=== PATIENT | female | born 1970 | race Caucasian/White ===

== ENCOUNTER 2018-03-30 13:05 | Emergency (ER) | payer MEDICAID ==
[2018-03-30] MEDS ORDERED: IBUPROFEN 800 MG TABLET PO STA (13:37)
--- NOTE | 2018-03-30 13:40 | ED Physician Documentation ---
PD HPI LOWER EXT INJURY - Stated complaint Stated Complaint: LT KNEE PX - Chief complaint Chief Complaint: Ext Problem - History obtained from History obtained from: Patient - History of Present Illness PD HPI LOW EXT INJURY LOCATION: Left, Knee Type of injury: Fall Where injury occurred: Home Timing - onset: How many months ago ("a few") Timing - duration: Months ("a few months") Timing - details: Gradual onset Pain level max: 8 Pain level now: 8 Improved by: Rest Worsened by: Moving, Palpating Associated symptoms: Swelling (medial aspect). No: Weakness, Numbness, Tingling Similar symptoms before: Other (R knee has had meniscus surgery x3) Recently seen: Not recently seen - Additional information Additional information: states worsening L knee pain. Has not taken anything for pain. Review of Systems Constitutional: denies: Fever, Chills Ears: denies: Ear pain Nose: denies: Rhinorrhea / runny nose, Congestion GI: denies: Vomiting, Diarrhea Skin: denies: Rash Musculoskeletal: denies: Neck pain, Back pain Neurologic: denies: Headache PD PAST MEDICAL HISTORY - Past Medical History Past Medical History: No Derm: Herpes zoster - Past Surgical History Past Surgical History: Yes Ortho: Other - Present Medications Home Medications: Ambulatory Orders Medication Instructions Recorded Confirmed Acyclovir 200 mg PO 03/30/18 03/30/18 Hydrocodone/Acetaminophen 1 - 2 each PO Q6H PRN #10 tablet 03/30/18 [Hydrocodon-Acetaminophen 5-325] Ibuprofen [Motrin] 800 mg PO Q8H PRN #30 tablet 03/30/18 - Allergies Allergies/Adverse Reactions: Allergies Allergy/AdvReac Type Severity Reaction Status Date / Time Penicillins Allergy Unknown Verified 03/30/18 13:12 Sulfa (Sulfonamide Allergy Rash Verified 03/30/18 13:12 Antibiotics) - Social History Does the pt smoke?: No Smoking Status: Never smoker Does the pt drink ETOH?: No Does the pt have substance abuse?: No - Immunizations Immunizations are current?: Yes PD ED PE NORMAL - Vitals Vital signs reviewed: Yes - General General: Alert and oriented X 3, No acute distress - HEENT HEENT: PERRL - Neck Neck: Supple, no meningeal sign - Derm Derm: Warm and dry - Extremities Extremities: Other (L knee - medial knee diffuse TTP. NVI. mild swelling. mild joint effusion. ACL, MCL, LCL, PCL intact. Unable to assess meniscus. ) - Neuro Neuro: Alert and oriented X 3 Results - Vitals Vitals: Vital Signs - 24 hr 03/30/18 03/30/18 13:10 14:58 Temperature 36.5 C Heart Rate 86 93 Respiratory 16 18 Rate Blood Pressure 115/95 H 140/83 H O2 Saturation 95 97 Oxygen O2 Source Room air - Rads (name of study) L knee xray Radiology: Prelim report reviewed, EMP read contemporaneously, See rad report (normal) PD MEDICAL DECISION MAKING - ED course Complexity details: reviewed results, considered differential, d/w patient ED course: L knee swelling and tenderness. No acute findings on xray. Placed in a articulated knee brace for comfort, 10-50 degrees. Also given crutches. Will prescribe pain medication follow-up with her doctor. Patient counseled prasanna wining signs and symptoms for which I believe and urgent re-evaluation would be necessary. Patient with good understanding of and agreement to plan and is comfortable going home at this time This document was made in part using voice recognition software. While efforts are made to proofread this document, sound alike and grammatical errors may occur. Departure - Departure Disposition: 01 Home, Self Care Clinical Impression: Knee effusion, left Left knee injury Qualifiers: Encounter type: initial encounter Qualified Code(s): S89.92XA - Unspecified injury of left lower leg, initial encounter Condition: Good Instructions: ED Fx Knee Follow-Up: Lester Stark DO [Primary Care Provider] - Within 1 week Prescriptions: Hydrocodone/Acetaminophen [Hydrocodon-Acetaminophen 5-325] 1 - 2 each PO Q6H PRN #10 tablet PRN Reason: pain Ibuprofen [Motrin] 800 mg PO Q8H PRN #30 tablet PRN Reason: PAIN &/OR FEVER Comments: Use the medications as prescribed. Follow-up with your doctor for further care. Will need a repeat examination in approximately 1 week with your doctor when the swelling has decreased. Your x-rays are normal today. Do not drink alcohol or drive while on narcotic pain medicine. Note that many narcotic pain relievers also contain tylenol/acetaminophen. Please ensure that your total dose of acetaminophen from all sources does not exceed 3 grams (3000mg) per day. You may constipated on this medication, take a stool softener such as "Colace" twice a day while you are on it. Also recommend a [id number] laxative such as senna or MiraLAX any day that you do not have a bowel movement. If you received narcotic pain medication in the emergency department, do not drive or operate machinery for the next 24 hours. Forms: Activity restrictions Discharge Date/Time: 03/30/18 14:58
--- NOTE | 2018-03-30 14:10 | XRAY Report ---
Reason: fall, L knee pain Procedure Date: 03/30/2018 Accession Number: [id number] / [id number] Procedure: XR - Knee 4 View LT CPT Code: FULL RESULT: EXAM: LEFT KNEE RADIOGRAPHY EXAM DATE: 03/30/2018 02:02 PM. CLINICAL HISTORY: Fall, left knee pain. COMPARISON: None. TECHNIQUE: 3 views. FINDINGS: Bones: Normal. No fractures or bone lesions. Joints: Normal. No effusion. No subluxations. Soft Tissues: Normal. No soft tissue swelling. IMPRESSION: Normal knee radiography. RADIA
[2018-03-30 15:00] VITALS: BP 140/83
== END 2018-03-30 14:58 | disposition home or self-care (01) ==
LOC: ED 13:05
DX: M25.462 Effusion, left knee (principal); S89.92XA Unspecified injury of left lower leg, initial encounter; W19.XXXA Unspecified fall, initial encounter; Y92.009 Unspecified place in unspecified non-institutional (private) residence as the place of occurrence of the external cause
CPT/HCPCS: 73564; 99283; A9270

== ENCOUNTER 2018-04-28 15:45 | Outpatient (CLI) | payer MEDICAID | END 2018-04-28 15:46 | disposition critical access hospital (66) | LOC: EMS 15:45 | PROVIDERS: ATTEND Surgery | DX: R41.0 Disorientation, unspecified (principal) | CPT/HCPCS: A0425; A0429; A0999 ==

== ENCOUNTER 2018-04-28 16:03 | Emergency (ER) | payer MEDICAID ==
--- NOTE | 2018-04-28 16:12 | ED Physician Documentation ---
History of Present Illness - Stated complaint Stated Complaint: MHE - History obtained from History obtained from: Patient, EMS - History of Present Illness Timing: Other (Is a 47-year-old woman who is brought in by ambulance because of an anxiety attack. She states that her mom who was her best friend about a month ago. Since then she just has been handling it well and [place] with a near syncopal episode.) Review of Systems Ten Systems: 10 systems reviewed and negative Constitutional: denies: Fever, Chills Respiratory: denies: Dyspnea, Cough GI: denies: Abdominal Pain, Nausea, Vomiting PD PAST MEDICAL HISTORY - Past Medical History Derm: Herpes zoster - Past Surgical History Past Surgical History: Yes Ortho: Other - Present Medications Home Medications: Ambulatory Orders Medication Instructions Recorded Confirmed No Known Home Medications 04/28/18 04/28/18 - Allergies Allergies/Adverse Reactions: Allergies Allergy/AdvReac Type Severity Reaction Status Date / Time Penicillins Allergy Unknown Verified 04/28/18 16:19 Sulfa (Sulfonamide Allergy Rash Verified 04/28/18 16:19 Antibiotics) - Social History Does the pt smoke?: No Smoking Status: Never smoker Does the pt drink ETOH?: No Does the pt have substance abuse?: No - Immunizations Immunizations are current?: Yes PD ED PE NORMAL - Vitals Vital signs reviewed: Yes - General General: Alert and oriented X 3, No acute distress - HEENT HEENT: PERRL, EOMI - Neck Neck: Supple, no meningeal sign, No bony TTP - Cardiac Cardiac: RRR, No murmur - Respiratory Respiratory: No respiratory distress, Clear bilaterally - Abdomen Abdomen: Non tender - Back Back: No CVA TTP - Derm Derm: Normal color, Warm and dry - Extremities Extremities: No edema, No calf tenderness / cord - Neuro Neuro: Alert and oriented X 3, Normal speech - Psych Psych: Normal mood, Normal affect Results - Vitals Vitals: Vital Signs - 24 hr 04/28/18 16:16 Temperature 36.6 C Heart Rate 78 Respiratory 14 Rate Blood Pressure 141/96 H O2 Saturation 95 Oxygen O2 Source Room air - Labs Labs: Laboratory Tests 04/28/18 04/28/18 04/28/18 16:20 16:20 16:30 WBC 3.1 L RBC 3.52 L Hgb 13.4 Hct 39.3 MCV 111.7 H MCH 38.0 H MCHC 34.0 RDW 21.8 H Plt Count 64 L MPV 7.4 L Neut # (Auto) 1.0 L Lymph # (Auto) 1.6 [place] # (Auto) 0.4 Eos # (Auto) 0.1 Baso # (Auto) 0.1 Absolute Nucleated RBC 0.01 Nucleated RBC % 0.2 Manual Slide Review Indicated WBC Morphology NORMAL APPEARANCE Platelet Estimate DECREASED (<130,000) Platelet Morphology NORMAL APPEARANCE RBC Morph Micro Appear 4+ MACROCYTOSIS Sodium 141 Potassium 4.0 Chloride 98 L Carbon Dioxide 19 L Anion Gap 24.0 H BUN 7 Creatinine 0.6 Estimated GFR (MDRD) 108 Glucose 94 Calcium 9.2 Total Bilirubin 0.8 AST 159 H ALT 71 H Alkaline Phosphatase 58 Total Protein 8.4 H Albumin 5.7 H Globulin 2.8 Albumin/Globulin Ratio 2.1 Lipase 51 Urine Color Urine Clarity Urine pH Ur Specific [place] [employer] Urine Protein Urine Glucose (UA) Urine Ketones Urine Occult Blood Urine Nitrite Urine Bilirubin Urine Urobilinogen Ur Leukocyte Esterase Urine RBC Urine WBC Ur Squamous Epith Cells Urine Bacteria Ur Microscopic Review Urine Culture Comments Urine HCG, Qual Salicylates < 6.0 Urine Opiates Screen NEGATIVE Ur Oxycodone Screen NEGATIVE Urine Methadone Screen NEGATIVE Ur Propoxyphene Screen NEGATIVE Acetaminophen < 10 L Ur Barbiturates Screen NEGATIVE Ur Tricyclics Screen NEGATIVE Ur Phencyclidine Scrn NEGATIVE Ur Amphetamine Screen NEGATIVE U Methamphetamines Scrn NEGATIVE U Benzodiazepines Scrn NEGATIVE Urine Cocaine Screen NEGATIVE U Cannabinoids Screen NEGATIVE Ethyl Alcohol 522.6 H* 04/28/18 16:30 WBC RBC Hgb Hct MCV MCH MCHC RDW Plt Count MPV Neut # (Auto) Lymph # (Auto) [place] # (Auto) Eos # (Auto) Baso # (Auto) Absolute Nucleated RBC Nucleated RBC % Manual Slide Review WBC Morphology Platelet Estimate Platelet Morphology RBC Morph Micro Appear Sodium Potassium Chloride Carbon Dioxide Anion Gap BUN Creatinine Estimated GFR (MDRD) Glucose Calcium Total Bilirubin AST ALT Alkaline Phosphatase Total Protein Albumin Globulin Albumin/Globulin Ratio Lipase Urine Color YELLOW Urine Clarity SL. CLOUDY Urine pH 5.5 Ur Specific [place] [employer] <=1.005 Urine Protein 30 H Urine Glucose (UA) NEGATIVE Urine Ketones 15 H Urine Occult Blood LARGE H Urine Nitrite NEGATIVE Urine Bilirubin NEGATIVE Urine Urobilinogen 0.2 (NORMAL) Ur Leukocyte Esterase NEGATIVE Urine RBC 6-10 H Urine WBC 4-5 Ur Squamous Epith Cells MANY Squamous H Urine Bacteria Many H Ur Microscopic Review INDICATED Urine Culture Comments NOT INDICATED Urine HCG, Qual NEGATIVE Salicylates Urine Opiates Screen Ur Oxycodone Screen Urine Methadone Screen Ur Propoxyphene Screen Acetaminophen Ur Barbiturates Screen Ur Tricyclics Screen Ur Phencyclidine Scrn Ur Amphetamine Screen U Methamphetamines Scrn U Benzodiazepines Scrn Urine Cocaine Screen U Cannabinoids Screen Ethyl Alcohol PD MEDICAL DECISION MAKING - ED course ED course: 47-year-old woman presents with anxiety attack and grief reaction at the recent loss of her mother. Social work was seeing her but her blood alcohol was too high for a thorough and accurate evaluation at this time and we recommended that she board in the emergency department overnight pending sobriety. She ambulated out of the emergency department without notifying staff, she was not discharged formally. Departure - Departure Disposition: ED [place] Clinical Impression: Alcoholic intoxication Discharge Date/Time: 04/28/18 18:03
[2018-04-28 16:19] VITALS: BP 141/96
[2018-04-28 16:35] LABS: MUDS CUTOFF CONCENTRATIONS CUTOFF CONC BELOW:
[2018-04-28 16:42] LABS: ALBUMIN 5.7 g/dL (3.2-5.5); ALBUMIN/GLOBULIN RATIO 2.1 (1.0-2.2); ALKALINE PHOSPHATASE 58 IU/L (42-121); ALT ALANINE AMINOTRANSFERASE 71 IU/L (10-60); AST ASPARTATE AMINOTRANSFERASE 159 IU/L (10-42); BILIRUBIN,TOTAL 0.8 mg/dL (0.2-1.0); BUN - BLOOD UREA NITROGEN 7 mg/dL (6-20); CALCIUM 9.2 mg/dL (8.5-10.3); CARBON DIOXIDE - CO2 19 mmol/L (21-32); CHLORIDE 98 mmol/L (101-111); CREATININE 0.6 mg/dL (0.4-1.0); GFR - MDRD 108 (>89); GLUCOSE 94 mg/dL (70-100); LIPASE 51 U/L (22-51); SODIUM 141 mmol/L (135-145); TOTAL PROTEIN 8.4 g/dL (6.7-8.2)
[2018-04-28 16:44] LABS: BASOPHILS # (AUTO) 0.1 10^3/uL (0.0-0.1); EOSINOPHILS # (AUTO) 0.1 10^3/uL (0.0-0.7); HGB - HEMOGLOBIN 13.4 g/dL (12.0-16.0); LYMPHOCYTES # (AUTO) 1.6 10^3/uL (1.5-3.5); LYMPHOCYTES % (AUTO) 50.9 %; MEAN CORPUSCULAR VOLUME 111.7 fL (81.0-99.0); MEAN PLATELET VOLUME 7.4 fL (7.9-10.8); MONOCYTES # (AUTO) 0.4 10^3/uL (0.0-1.0); MONOCYTES % (AUTO) 12.4 %; NEUTROPHILS % (AUTO) 32.7 %; PLT - PLATELET COUNT 64 10^3/uL (130-450); RED BLOOD COUNT 3.52 10^6/uL (4.20-5.40); RED CELL DISTRIBUTION WIDTH 21.8 % (12.0-15.0); WHITE BLOOD COUNT 3.1 x10^3/uL (4.8-10.8)
[2018-04-28 16:47] LABS: BILIRUBIN,URINE NEGATIVE (NEGATIVE); GLUCOSE, URINE (UA) NEGATIVE (NEGATIVE); KETONES,URINE (UA) 15 mg/dL (NEGATIVE); LEUKOCYTE ESTERASE, URINE NEGATIVE (NEGATIVE); NITRITE,URINE NEGATIVE (NEGATIVE); OCCULT BLOOD,URINE LARGE (NEGATIVE); PH,URINE 5.5 PH (5.0-7.5); PROTEIN,URINE 30 mg/dL (NEGATIVE); UROBILINOGEN,URINE 0.2 (NORMAL) E.U./dL (NORMAL)
[2018-04-28 16:47] LABS: ACETAMINOPHEN < 10 ug/mL (10-30); SALICYLATE < 6.0 mg/dL
[2018-04-28 16:52] LABS: CLARITY,URINE SL. CLOUDY (CLEAR); HCG UR QUAL NEGATIVE
[2018-04-28 16:56] LABS: AMPHETAMINE SCREEN,URINE NEGATIVE (NEGATIVE); BENZODIAZEPINES SCREEN, URINE NEGATIVE (NEGATIVE); COCAINE SCREEN URINE NEGATIVE (NEGATIVE); METHADONE SCREEN, URINE NEGATIVE (NEGATIVE); METHAMPHETAMINES SCREEN, URINE NEGATIVE (NEGATIVE); OPIATE SCREEN, URINE NEGATIVE (NEGATIVE); OXYCODONE SCREEN, URINE NEGATIVE (NEGATIVE); PROPOXYPHENE SCREEN, URINE NEGATIVE (NEGATIVE); TRICYCLIC ANTIDEPRESSANT,URINE NEGATIVE (NEGATIVE)
[2018-04-28 17:00] LABS: PLATELET ESTIMATE, MANUAL DECREASED (<130,000) (NORMAL); PLATELET MORPHOLOGY NORMAL APPEARANCE (NORMAL)
[2018-04-28 17:01] LABS: RBC MORPHOLOGY (MULTIPLE) 4+ MACROCYTOSIS (NORMAL)
[2018-04-28 17:03] LABS: BACTERIA,URINE Many /HPF (None Seen); SQUAMOUS EPITHELIAL CELL,UR MANY Squamous (<= Few)
== END 2018-04-28 18:03 | disposition left against medical advice (07) ==
LOC: EDUNIT# → ED 16:03
DX: F10.129 Alcohol abuse with intoxication, unspecified (principal); F41.9 Anxiety disorder, unspecified; F43.20 Adjustment disorder, unspecified; Y90.8 Blood alcohol level of 240 mg/100 ml or more
CPT/HCPCS: 36415; 80053; 80306; 80307; 80320; 80329; 81001; 81003; 81025; 83690; 85025; 87086; 99282; 99283

== ENCOUNTER 2018-09-12 10:49 | Emergency (ER) | payer MEDICAID ==
[2018-09-12 10:59] VITALS: BP 122/72
--- NOTE | 2018-09-12 11:22 | ED Physician Documentation ---
PD HPI URI - Stated complaint Stated Complaint: COLD SX - Chief complaint Chief Complaint: Resp - History obtained from History obtained from: Patient PD PAST MEDICAL HISTORY - Past Medical History Derm: Herpes zoster - Past Surgical History Past Surgical History: Yes Ortho: Other - Present Medications Home Medications: Ambulatory Orders Medication Instructions Recorded Confirmed No Known Home Medications 04/28/18 04/28/18 - Allergies Allergies/Adverse Reactions: Allergies Allergy/AdvReac Type Severity Reaction Status Date / Time Penicillins Allergy Unknown Verified 09/12/18 10:59 Sulfa (Sulfonamide Allergy Rash Verified 09/12/18 10:59 Antibiotics) - Social History Does the pt smoke?: No Smoking Status: Never smoker Does the pt drink ETOH?: No Does the pt have substance abuse?: No - Immunizations Immunizations are current?: Yes Results - Vitals Vitals: Vital Signs - 24 hr 09/12/18 10:54 Temperature 36.7 C Heart Rate 102 H Respiratory 14 Rate Blood Pressure 122/72 O2 Saturation 100 Oxygen O2 Source Room air
== END 2018-09-12 11:28 | disposition left against medical advice (07) ==
LOC: ED 10:49
DX: Z53.21 Procedure and treatment not carried out due to patient leaving prior to being seen by health care provider (principal)

== ENCOUNTER 2018-12-17 13:55 | Emergency (ER) | payer MEDICAID ==
[2018-12-17 14:08] VITALS: BP 130/76
--- NOTE | 2018-12-17 14:22 | ED Physician Documentation ---
PD HPI ANIMAL BITE - Stated complaint Stated Complaint: Dog Bite - Chief complaint Chief Complaint: Laceration - History obtained from History obtained from: Patient - History of Present Illness Location of injury(ies): Right hand Details of the event: Dog Timing - onset: Yesterday Associated symptoms: Swelling Similar symptoms before: Has not had sx before - Additional information Additional information: The patient is a 48-year-old female who presents with dog bite to her right hand. A neighbor's 4 dogs were overly excited yesterday when she came over to visit, and 1 of them nipped her right hand. She is right-hand dominant. She denies any other injuries. Her tetanus status is up-to-date. The dog's rabies status is up-to-date. Review of Systems Constitutional: denies: Fever Skin: reports: Bite / sting (Dorsum of right hand.) Musculoskeletal: reports: Extremity pain (Right hand.) Neurologic: denies: Focal weakness, Numbness PD PAST MEDICAL HISTORY - Past Medical History Endocrine/Autoimmune: None Derm: Herpes zoster - Past Surgical History Past Surgical History: Yes Ortho: Other - Present Medications Home Medications: Ambulatory Orders Medication Instructions Recorded Confirmed No Known Home Medications 04/28/18 04/28/18 - Allergies Allergies/Adverse Reactions: Allergies Allergy/AdvReac Type Severity Reaction Status Date / Time Penicillins Allergy Unknown Verified 09/12/18 10:59 Sulfa (Sulfonamide Allergy Rash Verified 09/12/18 10:59 Antibiotics) - Social History Does the pt smoke?: No Smoking Status: Never smoker Does the pt drink ETOH?: No Does the pt have substance abuse?: No - Immunizations Immunizations are current?: Yes PD ED PE NORMAL - Vitals Vital signs reviewed: Yes (normal) - General General: Alert and oriented X 3, Well developed/nourished - HEENT HEENT: Atraumatic - Respiratory Respiratory: No respiratory distress - Derm Derm: No rash - Extremities Extremities: Other (There is a superficial abrasion on the dorsum of the right hand between the second and third metacarpals. The wound is not subcutaneous. There is slight soft tissue swelling. There is no erythema. She has full flexion and extension of the DIP PIP and MCP joints against extension. Distal neurovascular is intact.) - Neuro Neuro: Alert and oriented X 3, No motor deficit, No sensory deficit Results - Vitals Vitals: Vital Signs - 24 hr 12/17/18 14:02 Temperature 36.5 C Heart Rate 92 Blood Pressure 130/76 O2 Saturation 92 Oxygen O2 Source Room air PD MEDICAL DECISION MAKING - ED course Complexity details: considered differential, d/w patient ED course: The patient's presentation is significant for a superficial dog bite to the right hand. The wound does not penetrate into the subcutaneous layer, and there is no sign of infection. Treatment in the emergency department included cleaning of the wound with Hibiclens, and wound dressing with antibiotic ointment and Band-Aid. I do not think oral antibiotics are clinically indicated. I discussed with her the expected course of injury, symptomatic treatment and outpatient follow-up, as well as potentially worrisome signs or symptoms that should prompt reevaluation in the emergency department. Departure - Departure Disposition: 01 Home, Self Care Clinical Impression: Dog bite Qualifiers: Encounter type: initial encounter Qualified Code(s): W54.0XXA - Bitten by dog, initial encounter Condition: Stable Instructions: ED Bite Dog Follow-Up: Lester Stark DO [Provider Admit Priv/Credential] - Comments: Keep your right hand elevated as much of the time as possible for the next 3 days. Wash the wound daily with warm soapy water, and apply antibiotic ointment. You can use Tylenol or ibuprofen if needed for discomfort. Follow-up with your primary physician or return to the emergency department if you develop any sign of infection, or otherwise worsening symptoms.
[2018-12-17] MEDS ORDERED: BACITRACIN OINT TOP ONE (14:24)
== END 2018-12-17 14:26 | disposition home or self-care (01) ==
LOC: ED 13:55
DX: S60.571A Other superficial bite of hand of right hand, initial encounter (principal); W54.0XXA Bitten by dog, initial encounter
CPT/HCPCS: 99282; A9270

== ENCOUNTER 2019-01-24 11:13 | Observation (INO) | payer MEDICAID ==
--- NOTE | 2019-01-24 12:49 | ED Physician Documentation ---
PD HPI NVD - Stated complaint Stated Complaint: VOMITING - Chief complaint Chief Complaint: Abd Pain - History obtained from History obtained from: Patient - History of Present Illness Timing - onset: How many days ago (4) Timing - duration: Days (4) Timing - details: Abrupt onset, Still present Associated symptoms: Abdominal pain, Loss of appetite, Other (repetitive vomiting without diarrhea (soft stool some).). No: Fever Contributing factors: No: Sick contact, Bad food, Travel, Recent antibiotics, Diabetes Improved by: No: Vomiting Worsened by: Eating Similar symptoms before: Has not had sx before Recently seen: Not recently seen Review of Systems Constitutional: reports: Chills, Myalgias. denies: Fever Nose: denies: Rhinorrhea / runny nose, Congestion Throat: denies: Sore throat Cardiac: denies: Chest pain / pressure Respiratory: denies: Cough GI: reports: Abdominal Pain, Nausea, Vomiting. denies: Abdominal Swelling, Constipation, Diarrhea, Hematemesis, Bloody / black stool : reports: Hematuria (urine appeared dark the past day). denies: Dysuria, Frequency Musculoskeletal: denies: Neck pain, Back pain Neurologic: reports: Generalized weakness, Near syncope. denies: Focal weakness, Numbness, Syncope PD PAST MEDICAL HISTORY - Past Medical History Endocrine/Autoimmune: None GI: None Derm: Herpes zoster - Past Surgical History Past Surgical History: Yes Ortho: Other - Present Medications Home Medications: Ambulatory Orders Medication Instructions Recorded Confirmed Acyclovir 01/24/19 - Allergies Allergies/Adverse Reactions: Allergies Allergy/AdvReac Type Severity Reaction Status Date / Time Penicillins Allergy Unknown Verified 01/24/19 11:16 Sulfa (Sulfonamide Allergy Rash Verified 01/24/19 11:16 Antibiotics) - Living Situation Living Situation: reports: Alone Living Arrangement: reports: At home - Social History Does the pt smoke?: No Smoking Status: Never smoker Does the pt drink ETOH?: Yes ETOH Use: Other (glass once a week or so) Does the pt have substance abuse?: No - Family History Family history: reports: Non contributory. denies: CAD - Immunizations Immunizations are current?: Yes PD ED PE NORMAL - Vitals Vital signs reviewed: Yes - General General: Alert and oriented X 3, Well developed/nourished - HEENT HEENT: Pharynx benign. No: Moist mucous membranes - Neck Neck: Supple, no meningeal sign, No adenopathy - Cardiac Cardiac: No murmur. No: RRR (tachycardic) - Respiratory Respiratory: Clear bilaterally - Abdomen Abdomen: Soft, Non distended, No organomegaly, Other (Tender in the epigastric and right upper quadrant area without percussion or rebound tenderness.). No: Normal bowel sounds (decreased) - Female Female : Deferred - Rectal Rectal: Deferred - Back Back: No CVA TTP - Derm Derm: Normal color, Warm and dry - Extremities Extremities: No deformity, No tenderness to palpate, No edema, No calf tenderness / cord - Neuro Neuro: Alert and oriented X 3, No motor deficit, Normal speech Results - Vitals Vitals: Vital Signs - 24 hr 01/24/19 01/24/19 01/24/19 11:16 12:16 12:47 Temperature 36.2 C L 36.7 C Heart Rate 121 H 103 H 101 H Respiratory 17 18 20 Rate Blood Pressure 146/90 H 155/109 H 144/101 H O2 Saturation 99 100 99 01/24/19 01/24/19 01/24/19 13:38 14:00 14:50 Temperature 36.8 C Heart Rate 112 H 106 H 99 Respiratory 18 18 18 Rate Blood Pressure 145/99 H 140/92 H 160/99 H O2 Saturation 98 106 H 98 01/24/19 01/24/19 01/24/19 15:30 16:03 16:35 Temperature Heart Rate 114 H 89 89 Respiratory 18 16 18 Rate Blood Pressure 145/99 H 150/113 H 138/101 H O2 Saturation 98 99 98 01/24/19 17:10 Temperature Heart Rate 97 Respiratory 18 Rate Blood Pressure 148/104 H O2 Saturation 100 Oxygen O2 Source Room air - Labs Labs: Laboratory Tests 01/24/19 01/24/19 01/24/19 13:00 13:00 13:19 WBC 6.0 RBC 3.29 L Hgb 13.1 Hct 36.7 L MCV 111.6 H MCH 39.8 H MCHC 35.7 RDW 15.6 H Plt Count 60 L MPV 11.4 H Neut # (Auto) 5.0 Lymph # (Auto) 0.3 L [place] # (Auto) 0.7 Eos # (Auto) 0.0 Baso # (Auto) 0.0 Absolute Nucleated RBC 0.00 Nucleated RBC % 0.0 Sodium Potassium Chloride Carbon Dioxide Anion Gap BUN Creatinine Estimated GFR (MDRD) Glucose Calcium Magnesium Total Bilirubin AST ALT Alkaline Phosphatase Total Protein Albumin Globulin Albumin/Globulin Ratio Lipase Urine Color DARK YELLOW Urine Clarity CLEAR Urine pH 6.5 Ur Specific [place] 1.025 1.025 Urine Protein >=300 H Urine Glucose (UA) NEGATIVE Urine Ketones >=80 H Urine Occult Blood MODERATE H Urine Nitrite NEGATIVE Urine Bilirubin NEGATIVE Urine Urobilinogen 1 (NORMAL) Ur Leukocyte Esterase NEGATIVE Urine RBC 0-5 Urine WBC 0-3 Ur Squamous Epith Cells RARE Squamous Urine Bacteria None Seen Urine Casts 11-25 Hyaline Casts Ur Microscopic Review INDICATED Urine Culture Comments NOT INDICATED Urine HCG, Qual NEGATIVE 01/24/19 13:19 WBC RBC Hgb Hct MCV MCH MCHC RDW Plt Count MPV Neut # (Auto) Lymph # (Auto) [place] # (Auto) Eos # (Auto) Baso # (Auto) Absolute Nucleated RBC Nucleated RBC % Sodium 135 Potassium 4.1 Chloride 101 Carbon Dioxide 14 L Anion Gap 20.0 H BUN 13 Creatinine 1.0 Estimated GFR (MDRD) 60 L Glucose 158 H Calcium 9.3 Magnesium 2.0 Total Bilirubin 2.8 H AST 81 H ALT 36 Alkaline Phosphatase 56 Total Protein 9.0 H Albumin 5.6 H Globulin 3.4 Albumin/Globulin Ratio 1.6 Lipase 301 H Urine Color Urine Clarity Urine pH Ur Specific [place] Urine Protein Urine Glucose (UA) Urine Ketones Urine Occult Blood Urine Nitrite Urine Bilirubin Urine Urobilinogen Ur Leukocyte Esterase Urine RBC Urine WBC Ur Squamous Epith Cells Urine Bacteria Urine Casts Ur Microscopic Review Urine Culture Comments Urine HCG, Qual - Rads (name of study) CT abd Radiology: Prelim report reviewed (Dilated pancreatic duct. Some inflammation around the gallbladder with some mild wall thickening. No obvious ductal obstruction.), See rad report abd U/S Radiology: Prelim report reviewed (Some mild wall thickening of the gallbladder. Common bile duct is mildly dilated at 9 mm. There is no obvious ductal obstruction.), See rad report PD MEDICAL DECISION MAKING - ED course Complexity details: reviewed results, considered differential (Sounds likely some biliary colic with may be transient ductal obstruction and subsequent pancreatitis. However there is no current obvious ductal of the obstruction. Her repetitive vomiting is given her gastritis type symptoms and she has some esophageal soreness from vomiting. She will need further evaluation and treatment beyond the emergency department timeframe and capacity. She is improved in symptoms with IV fluids and medications.), d/w patient Departure - Departure Disposition: ED Place in Observation Clinical Impression: Dehydration Abdominal pain Qualifiers: Abdominal location: upper abdomen, unspecified Qualified Code(s): R10.10 - Upper abdominal pain, unspecified Vomiting Qualifiers: Vomiting type: unspecified Vomiting Intractability: intractable Nausea presence: with nausea Qualified Code(s): R11.2 - Nausea with vomiting, unspecified Biliary acute pancreatitis Qualifiers: Acute pancreatitis complication: no infection or necrosis Qualified Code(s): K85.10 - Biliary acute pancreatitis without necrosis or infection
[2019-01-24] MEDS ORDERED: SODIUM CHLORIDE 0.9% 1,000 ML IV ONE ×2 (13:08→13:10)
[2019-01-24] MEDS ORDERED: ONDANSETRON 4 MG/2 ML VIAL IVP STA ×2 (13:08→15:39)
[2019-01-24] MEDS ORDERED: KETOROLAC 15 MG/ML VIAL IVP STA (13:09)
[2019-01-24] MEDS ORDERED: FAMOTIDINE 20 MG/2 ML VIAL IVP STA (13:09)
[2019-01-24] MEDS ORDERED: MORPHINE 10 MG/ML VIAL IVP STA (13:09)
[2019-01-24 13:27] LABS: GLUCOSE, URINE (UA) NEGATIVE (NEGATIVE); KETONES,URINE (UA) >=80 mg/dL (NEGATIVE); LEUKOCYTE ESTERASE, URINE NEGATIVE (NEGATIVE); NITRITE,URINE NEGATIVE (NEGATIVE); OCCULT BLOOD,URINE MODERATE (NEGATIVE); PH,URINE 6.5 PH (5.0-7.5); PROTEIN,URINE >=300 mg/dL (NEGATIVE); UROBILINOGEN,URINE 1 (NORMAL) E.U./dL (NORMAL)
[2019-01-24 13:28] LABS: BASOPHILS % (AUTO) 0.2 %; HGB - HEMOGLOBIN 13.1 g/dL (12.0-16.0); LYMPHOCYTES # (AUTO) 0.3 10^3/uL (1.5-3.5); LYMPHOCYTES % (AUTO) 4.1 %; MEAN CORPUSCULAR HEMOGLOBIN 39.8 pg (27.0-31.0); MEAN CORPUSCULAR HGB CONC 35.7 g/dL (32.0-36.0); MEAN CORPUSCULAR VOLUME 111.6 fL (81.0-99.0); MEAN PLATELET VOLUME 11.4 fL (7.9-10.8); MONOCYTES # (AUTO) 0.7 10^3/uL (0.0-1.0); MONOCYTES % (AUTO) 12.3 %; NEUTROPHILS % (AUTO) 82.6 %; PLT - PLATELET COUNT 60 10^3/uL (130-450); RED BLOOD COUNT 3.29 10^6/uL (4.20-5.40); RED CELL DISTRIBUTION WIDTH 15.6 % (12.0-15.0)
[2019-01-24] MEDS ORDERED: IOVERSOL 320 100 ML VIAL IVP ONE ×3 (13:28→14:44)
[2019-01-24 13:32] LABS: CLARITY,URINE CLEAR (CLEAR)
[2019-01-24 13:36] LABS: BILIRUBIN,URINE NEGATIVE (NEGATIVE); HCG UR QUAL NEGATIVE; ICTOTEST,URINE NEGATIVE
[2019-01-24 13:45] LABS: ALBUMIN 5.6 g/dL (3.2-5.5); ALBUMIN/GLOBULIN RATIO 1.6 (1.0-2.2); BILIRUBIN,TOTAL 2.8 mg/dL (0.2-1.0); CALCIUM 9.3 mg/dL (8.5-10.3)
[2019-01-24 13:45] LABS: BACTERIA,URINE None Seen /HPF (None Seen); CASTS, URINE 11-25 Hyaline Casts /LPF; RBC,URINE 0-5 /HPF (0-5); SQUAMOUS EPITHELIAL CELL,UR RARE Squamous (<= Few)
--- NOTE | 2019-01-24 15:05 | CT Report ---
Reason: vomiting and mid/upper abd pain 4 days Procedure Date: 01/24/2019 Accession Number: [id number] / [id number] Procedure: CT - Abdomen/Pelvis W CPT Code: FULL RESULT: EXAM: CT ABDOMEN AND PELVIS EXAM DATE: 01/24/2019 02:37 PM. CLINICAL HISTORY: Vomiting and mid/upper abd pain 4 days. COMPARISONS: None. TECHNIQUE: Routine helical CT imaging was performed through the abdomen and pelvis. IV contrast: OPTI 320 100ML. Enteric contrast: No. Reconstructions: Coronal and sagittal. In accordance with CT protocol optimization, one or more of the following dose reduction techniques were utilized for this exam: automated exposure control, adjustment of mA and/or KV based on patient size, or use of iterative reconstructive technique. FINDINGS: Lung Bases: Unremarkable. Liver: Fatty liver with diffuse decreased attenuation. Gallbladder/Bile Ducts: Distended gallbladder. 6 mm common bile duct. No intrahepatic biliary ductal dilatation. Spleen: Normal. Pancreas: Main pancreatic duct is dilated, measuring 7 x 8 mm diameter within head of pancreas. Adrenal Glands: Normal. Kidneys: Normal. No masses or hydronephrosis. Peritoneal Cavity/Bowel: Potential mild distal esophageal wall thickening. No free fluid, free air or adenopathy. No masses or acute inflammatory process. A normal appendix may be present on coronal image 21. No inflamed appendix evident. Pelvic Organs: IUD within uterus. No adnexal abnormality. Bladder is mostly collapsed. Vasculature: No aneurysms or other significant abnormality. Bones: No significant abnormality. Other: None. IMPRESSION: 1. Potential mild distal esophageal wall thickening. Question esophagitis. 2. Dilated main pancreatic duct. Recommend gastroenterology consult and consider ERCP/EUS to assess for obstructing stone or lesion. 3. Gallbladder is distended. No biliary ductal dilatation. 4. Fatty liver. RADIA
--- NOTE | 2019-01-24 17:01 | Ultrasound Report ---
Reason: distended GB and pnacreatic duct on CT Procedure Date: 01/24/2019 Accession Number: [id number] Procedure: US - Abdomen Limited CPT Code: FULL RESULT: EXAM: ABDOMEN ULTRASOUND LIMITED, RUQ EXAM DATE: 01/24/2019 04:36 PM. CLINICAL HISTORY: Distended gallbladder and pancreatic duct on CT. COMPARISON: ABDOMEN/PELVIS W/ 01/24/2019 2:30 PM. TECHNIQUE: Real-time scanning was performed with static images obtained. FINDINGS: Liver: Severe fatty liver. 19.7 cm. Main portal vein flow: Hepatopetal. Gallbladder: Distended gallbladder, within normal limits. No evidence for acute cholecystitis. No gallbladder wall thickening or pericholecystic fluid. Mild to moderate gallbladder sludge. No gallstones. The gallbladder is tender. The common duct is mildly dilated at 1 cm. The right kidney measures 11.6 cm and there is no hydronephrosis. IMPRESSION: 1. Severe fatty liver. 2. Distended gallbladder, within normal limits. No evidence for acute cholecystitis. No gallbladder wall thickening or pericholecystic fluid. Mild to moderate gallbladder sludge. No gallstones. The gallbladder is tender. 3. The common duct is mildly dilated at 1 cm. RADIA
[2019-01-24] MEDS ORDERED: ONDANSETRON ODT 4 MG TABLET TL PRN (17:17)
[2019-01-24] MEDS ORDERED: PROCHLORPERAZINE 10 MG/2 ML VIAL IVP PRN (17:17)
[2019-01-24] MEDS ORDERED: PROMETHAZINE INJ 12.5 MG in SODIUM CHLORIDE 0.9% 50 ML IV STA ×2 (17:25→18:32)
[2019-01-24] MEDS ORDERED: SODIUM CHLORIDE 0.9% 1,000 ML IV SCH (18:00)
--- NOTE | 2019-01-24 18:00 | HISTORY & PHYSICAL EXAMINATION ---
Chief Complaint - Chief Complaint Chief Complaint: nausea and vomiting, and abdominal pain History of Present Illness - History of Present Illness HPI Comment/Other: Ms. Ren is a 48-yrs-old female without significant medical hx who present ER complain of nausea, vomiting and abdominal pain. pt report she has been throwing up profusely for the last three days. she can't keep anything down not even water. she is still feeling" i'm dehydrated." she report she had diffused and whole abdominal pain. she denies diarrhea. she report she did not have bowel movement for four days "anyway, I did not eat much." She denies fever, chill, chest pain, shortness of breath. CT of abdomen reveals potential mild distal esophageal wall thickening, question esophagitis, Dilated main pancreatic duct, gallbladder is distended, no biliary ductal dilation, fatty liver. US of abdomen reveals the common duct is mildly dilated at 1 cm. Lab test reveals significant value of total bilirubin 2.8, Ast 81, Lipase 301, Plt 60. pt is admitted in observation unit for further management. History - Past Medical History Endocrine/Autoimmune: reports: None GI: reports: None Derm: reports: Herpes zoster MRSA Hx?: No - Past Surgical History Ortho: reports: Other - Family & Social History Family History: Mother: , Cancer, Father: , CVA/TIA Family History Comment/Other: pt report her father from CVA, her mother from breast cancer and brain tumor, her one sister had breast cancer. she did not have close relationship with other her siblings. she had one son, he is 26 yrs, and very health. 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 she denies ciaette smoker, alcohol and drug issue. - POLST POLST Status: Full Code Meds/Allgy - Home Medications Home Medications: Ambulatory Orders Medication Instructions Recorded Confirmed Acyclovir 01/24/19 - Allergies Allergies/Adverse Reactions: Allergies Allergy/AdvReac Type Severity Reaction Status Date / Time Penicillins Allergy Unknown Verified 01/24/19 11:16 Sulfa (Sulfonamide Allergy Rash Verified 01/24/19 11:16 Antibiotics) Review of Systems - Constitutional Constitutional: denies: Fatigue, Fever, Chills, Malaise, Weakness, Poor appetit e, Diaphoresis, Night sweats, Weight gain, Weight loss - Eyes Eyes: denies: Pain, Irritation, Amaurosis, Blurred vision, Spots in vision, Field loss, Vision loss, Dipolpia, Corrective lenses - Ears, Nose & Throat Ears, Nose & Throat: denies: Ear pain, Hearing loss, Hearing aids, Tinnitus, Vertigo, Nasal pain, Nasal discharge, Nosebleeds, Nasal obstruction, Nasal congestion, Postnasal drainage, Dentures, Sore throat, Hoarseness, Mouth lesions, Bleeding gums - Cardiovascular Cariovascular: denies: Irregular heart rate, Palpitations, Chest pain, Edema, Lightheadedness, Syncope, Exertional dyspnea, Decr. exercise tolerance - Respiratory Respiratory: denies: Cough, Sputum production, Wheezing, Snoring, Hemoptysis, Orthopnea, SOB at rest, SOB with exertion, Apnea, Stridor - Gastrointestinal Gastrointestinal: reports: Abdominal pain, Nausea, Vomiting. denies: Abdominal distention, Constipation, Diarrhea, Change in bowel habits, Rectal bleeding, Black stools, Bloody stools, Bile emesis, Paul blood emesis, Coffee grounds emesis, Reflux/heartburn, Bloating, Poor appetite, Other - Genitourinary Genitourinary: denies: Dysuria, Frequency, Urgency, Hematuria, Incontinence, Flank pain, Nocturia, Urethral discharge - Musculoskeletal Musculoskeletal: denies: Muscle pain, Back pain, Muscle aches, Stiffness, Limited range of motion, Muscle weakness, Gout, Joint pain - Integumentary Integumentary: denies: Rash, Pruritis, Lesions, Dryness, Lumps, Acne, Pigment changes, Nail changes - Neurological Neurological: denies: General weakness, Focal weakness, Headache, Dizziness, Numbness, Memory problems, Pre-existing deficit, Abnormal gait, Seizures, Incoordination, Slurred speech - Psychiatric Psychiatric: denies: Depression, Anxiety, Suicidal, Delusions, Hallucinations, Homicidal - Endocrine Endocrine: denies: Polyuria, Polydypsia, Polyphagia - Hematologic/Lymphatic Hematologic/Lymphatic: denies: Anemia, Bruising, Petechiae, Blood clots, Lymphadenopathy, Bleeding tendencies, Recurrent infections Exam - Vital Signs Reviewed Vital Signs: Yes Vital Signs: Vital Signs x48h Temp Pulse Resp BP Pulse Ox 01/24/19 17:55 36.7 C 92 16 141/95 H 98 01/24/19 17:10 97 18 148/104 H 100 01/24/19 16:35 89 18 138/101 H 98 01/24/19 16:03 89 16 150/113 H 99 01/24/19 15:30 114 H 18 145/99 H 98 01/24/19 14:50 36.8 C 99 18 160/99 H 98 01/24/19 14:00 106 H 18 140/92 H 106 H 01/24/19 13:38 112 H 18 145/99 H 98 01/24/19 12:47 101 H 20 144/101 H 99 01/24/19 12:16 36.7 C 103 H 18 155/109 H 100 01/24/19 11:16 36.2 C L 121 H 17 146/90 H 99 - Physical Exam General Appearance: positive: Alert, Mild distress. negative: Lethargic Eyes Bilateral: positive: Normal inspection, PERRL, No lid inflammation, Conjunctivae nml ENT: positive: ENT inspection nml, Pharynx nml, No signs of dehydration. negative: Purulent nasal drainage, Pharyngeal erythema, Oral lesions Neck: positive: Nml inspection, Thyroid nml, No JVD, Trachea midline. negative: Thyromegaly, Lymphadenopathy (R), Lymphadenopathy (L), Stiff neck, S welling/bruising, Tracheal deviation Respiratory: positive: Chest non-tender, No respiratory distress, Breath sounds nml. negative: Wheezes, Rales, Rhonchi Cardiovascular: positive: Regular rate & rhythm, No murmur, No gallop. negative: Irregularly irregular, Extrasystoles, Tachycardia, Bradycardia, JVD present, Systolic murmur, Diastolic murmur Peripheral Pulses: positive: 2+ Abdomen: positive: Non-tender, No organomegaly, Nml bowel sounds, No distention. negative: Tenderness, Guarding, Rebound Back: positive: Nml inspection. negative: CVA tenderness (R), CVA tenderness (L) Skin: positive: Color nml, No rash, Warm, Dry. negative: Cyanosis, Diaphoresis, Pallor Extremities: positive: Non-tender, Full ROM, Nml appearance. negative: Calf tenderness, Joint swelling, Nellie's sign/cords Neurologic/Psychiatric: positive: Oriented x3, Motor nml, Sensation nml, Mood/affect nml. negative: Weakness, Sensory loss, Facial droop, Slurred/abnml speech, Depressed mood/affect Sepsis Event Note (H) - Evaluation Current Stage of Sepsis: Ruled out Conclusion/Plan - Problem List (1) Abdominal pain Conclusion/Plan: lab test show elevated Lipase, CT of abdomen reveals Dilated main pancreatic duct but without indication for pancreatitis. plan: order MRCP to determine if pt need ERCP. if pt need ERCP, then pt will be transferred to high level care with GI specialty to have ERCP pain control NPO now IVF Qualifiers: Abdominal location: upper abdomen, unspecified Qualified Code(s): R10.10 - Upper abdominal pain, unspecified (2) Nausea & vomiting Conclusion/Plan: unknown etiology, the differentia diagnosis included pancreatitis, main pancreatic duct block, virus esophegitis IVF of NS antiemeotics PRN bowel rest with NPO (3) Elevated bilirubin Conclusion/Plan: pt has 2.8 total bilirubin, and slight elevated AST. pt has hx of alcohol abuse although she denies now, and alcohol test is negative now order MRCP continue lab monitor (4) Elevated lipase Conclusion/Plan: pt has elevated Lipase 301, and CT reveals dilated pancreatic duct order MRCP, followup bowel rest, NPO IVF of NS pain control (5) Thrombocytopenia Conclusion/Plan: pt had Plt 60 but she had normal WBC and HGB level, pt has hx of alcohol. pt denies any bleeding. hx of alcohol is likely the cause of her thrombocytopenia lab monitor, hold any blood thinner, closely any bleeding (6) Full code status Conclusion/Plan: pt request full code - Lab Results Fish Bones: 01/24/19 13:19 01/24/19 13:19 Core Measures - Anticipated LOS I expect patient to be DC'd or transferred within 96 hours.: Yes - DVT/VTE - Prophylaxis VTE/DVT Device ordered at admit?: Yes VTE/DVT Prophylaxis med ordered at admit?: Yes
[2019-01-24] MEDS: SODIUM CHLORIDE FLUSH 0.9% 10 ML SYRINGE IVP PRN (18:38)
[2019-01-24] MEDS: SODIUM CHLORIDE 0.9% 1,000 ML IV SCH (18:38)
[2019-01-24] MEDS: HYDROmorphone 1 MG/ML CARPUJECT IVP PRN (18:42)
[2019-01-24] MEDS: ONDANSETRON 4 MG/2 ML VIAL IVP PRN (18:45)
[2019-01-25 00:46] LABS: MUDS CUTOFF CONCENTRATIONS CUTOFF CONC BELOW:
[2019-01-25 01:29] LABS: AMPHETAMINE SCREEN,URINE NEGATIVE (NEGATIVE); BENZODIAZEPINES SCREEN, URINE NEGATIVE (NEGATIVE); COCAINE SCREEN URINE NEGATIVE (NEGATIVE); METHADONE SCREEN, URINE NEGATIVE (NEGATIVE); METHAMPHETAMINES SCREEN, URINE NEGATIVE (NEGATIVE); OPIATE SCREEN, URINE POSITIVE (NEGATIVE); OXYCODONE SCREEN, URINE NEGATIVE (NEGATIVE); PROPOXYPHENE SCREEN, URINE NEGATIVE (NEGATIVE); TRICYCLIC ANTIDEPRESSANT,URINE NEGATIVE (NEGATIVE)
[2019-01-25] MEDS: SODIUM CHLORIDE FLUSH 0.9% 10 ML SYRINGE IVP SCH ×3 (01:52→16:11)
[2019-01-25] MEDS: SODIUM CHLORIDE 0.9% 1,000 ML IV SCH ×3 (02:24→19:56)
[2019-01-25 05:32] LABS: BASOPHILS % (AUTO) 0.2 %; EOSINOPHILS # (AUTO) 0.1 10^3/uL (0.0-0.7); EOSINOPHILS % (AUTO) 0.8 %; HGB - HEMOGLOBIN 10.3 g/dL (12.0-16.0); LYMPHOCYTES # (AUTO) 0.9 10^3/uL (1.5-3.5); MEAN CORPUSCULAR HEMOGLOBIN 39.2 pg (27.0-31.0); MEAN CORPUSCULAR HGB CONC 35.5 g/dL (32.0-36.0); MEAN CORPUSCULAR VOLUME 110.3 fL (81.0-99.0); MEAN PLATELET VOLUME 11.1 fL (7.9-10.8); MONOCYTES # (AUTO) 0.4 10^3/uL (0.0-1.0); MONOCYTES % (AUTO) 7.1 %; NEUTROPHILS # (AUTO) 4.7 10^3/uL (1.5-6.6); NEUTROPHILS % (AUTO) 77.2 %; PLT - PLATELET COUNT 55 10^3/uL (130-450); RED BLOOD COUNT 2.63 10^6/uL (4.20-5.40); RED CELL DISTRIBUTION WIDTH 15.9 % (12.0-15.0); WHITE BLOOD COUNT 6.1 x10^3/uL (4.8-10.8)
[2019-01-25] MEDS: HYDROmorphone 1 MG/ML CARPUJECT IVP PRN ×2 (05:45→13:01)
[2019-01-25] MEDS: ONDANSETRON 4 MG/2 ML VIAL IVP PRN ×2 (05:46→13:03)
[2019-01-25 05:59] LABS: PLATELET ESTIMATE, MANUAL DECREASED (<130,000) (NORMAL); PLATELET MORPHOLOGY NORMAL APPEARANCE (NORMAL)
[2019-01-25 06:11] LABS: ALBUMIN 4.8 g/dL (3.2-5.5); ALBUMIN/GLOBULIN RATIO 1.5 (1.0-2.2); BILIRUBIN,TOTAL 1.9 mg/dL (0.2-1.0); CALCIUM 9.2 mg/dL (8.5-10.3); CREATININE 0.7 mg/dL (0.4-1.0); TOTAL PROTEIN 7.9 g/dL (6.7-8.2)
[2019-01-25] MEDS: PANTOPRAZOLE 40 MG VIAL IVP SCH (06:50)
[2019-01-25] MEDS ORDERED: POTASSIUM CHLORIDE 20 MEQ TABLET PO ONE (07:27)
[2019-01-25] MEDS: POLYETHYLENE GLYCOL 3350 17 GM PACKET PO SCH (10:42)
--- NOTE | 2019-01-25 15:53 | PROVIDER PROGRESS NOTE ---
Subjective - Prog Note Date Prog Note Date: 01/25/19 - Subjective Pt reports feeling: Improved Subjective: pt report her abdominal pain is better, and nausea and vomiting is significant better as well. pt's MRCP is still pending now. Current Medications - Current Medications Current Medications: Active Medications Docusate Sodium (Colace 250mg Capsule) 250 - 500 mg PO DAILY [facility] Hydromorphone HCl (Dilaudid Inj Carp) 1 mg IVP Q2HR PRN PRN Reason: Pain 8 to 10 Last Admin: 01/25/19 13:01 Dose: 1 mg Sodium Chloride (Normal Saline 0.9%) 1,000 mls @ 125 mls/hr IV .Q8H [facility] Last Admin: 01/25/19 10:41 Dose: 125 mls/hr Ondansetron HCl (Zofran Inj) 4 mg IVP Q6HR PRN PRN Reason: Nausea / Vomiting Last Admin: 01/25/19 13:03 Dose: 4 mg Ondansetron HCl (Zofran Odt) 4 mg TL Q6HR PRN PRN Reason: Nausea / Vomiting Pantoprazole Sodium (Protonix) 40 mg IVP QDAC [facility] Last Admin: 01/25/19 06:50 Dose: 40 mg Polyethylene Glycol (Miralax) 17 gm PO DAILY [facility] Last Admin: 01/25/19 10:42 Dose: Not Given Prochlorperazine Edisylate (Compazine Inj) 10 mg IVP Q6HR PRN PRN Reason: Nausea / Vomiting Sodium Chloride (Normal Saline Flush 0.9%) 10 ml IVP PRN PRN PRN Reason: NEEDED PER PROVIDER ORDERS Last Admin: 01/24/19 18:38 Dose: 10 ml Sodium Chloride (Normal Saline Flush 0.9%) 10 ml IVP 0100,0900,1700 [facility] Last Admin: 01/25/19 05:45 Dose: 10 ml Acyclovir 400 mg PO DAILY 01/25/19 Objective - Vital Signs/Intake & Output Reviewed Vital Signs: Yes Vital Signs: Vital Signs x48h Temp Pulse Resp BP Pulse Ox 01/25/19 15:38 36.8 C 82 16 146/88 H 98 01/25/19 12:40 37.3 C 87 16 147/89 H 96 Intake & Output: Intake & Output 09/3001/23/19 01/24/19 01/25/19 23:59 23:59 23:59 23:59 Intake Total 2100.5 2070.833 Output Total 1000 Balance 2100.5 1070.833 - Objective General Appearance: positive: No acute distress, Alert. negative: Lethargic Eyes Bilateral: positive: Normal inspection, PERRL, No lid inflammation, Conjunctivae nml ENT: positive: ENT inspection nml, Pharynx nml, No signs of dehydration. negative: Purulent nasal drainage, Pharyngeal erythema, Oral lesions Neck: positive: Nml inspection, Thyroid nml, No JVD, Trachea midline. negative: Thyromegaly, Lymphadenopathy (R), Lymphadenopathy (L), Stiff neck, Swelling/bruising, Tracheal deviation Respiratory: positive: Chest non-tender, No respiratory distress, Breath sounds nml. negative: Wheezes, Rales, Rhonchi Cardiovascular: positive: Regular rate & rhythm, No murmur, No gallop. negative: Irregularly irregular, Extrasystoles, Tachycardia, Bradycardia, JVD present, Systolic murmur, Diastolic murmur Peripheral Pulses: 2+ Radial (R), 2+ Radial (L), 2+ Dorsalis pedis (R), 2+ Dorsalis pedis (L) Abdomen: positive: Non-tender, No organomegaly, Nml bowel sounds, No distention. negative: Tenderness, Guarding, Rebound Back: positive: Nml inspection. negative: CVA tenderness (R), CVA tenderness (L) Skin: positive: Color nml, No rash, Warm, Dry. negative: Cyanosis, Diaphoresis, Pallor Extremities: positive: Non-tender, Full ROM, Nml appearance. negative: Calf tenderness, Joint swelling, Nellie's sign/cords Neurologic/Psychiatric: positive: Oriented x3, Motor nml, Sensation nml, Mood/ affect nml. negative: Weakness, Sensory loss, Facial droop, Slurred/abnml speech, Depressed mood/affect - Lab Results Fish Bones: 01/25/19 05:10 01/25/19 05:45 Other Labs: Lab Results x24hrs 01/25/19 01/25/19 01/24/19 Range/Units 05:45 05:10 17:51 WBC 6.1 (4.8-10.8) x10^3/uL RBC 2.63 L (4.20-5.40) 10^6/uL Hgb 10.3 L (12.0-16.0) g/dL Hct 29.0 L (37.0-47.0) % MCV 110.3 H (81.0-99.0) fL MCH 39.2 H (27.0-31.0) pg MCHC 35.5 (32.0-36.0) g/dL RDW 15.9 H (12.0-15.0) % Plt Count 55 L (130-450) 10^3/uL MPV 11.1 H (7.9-10.8) fL Neut # (Auto) 4.7 (1.5-6.6) 10^3/uL Lymph # (Auto) 0.9 L (1.5-3.5) 10^3/uL [place] # (Auto) 0.4 (0.0-1.0) 10^3/uL Eos # (Auto) 0.1 (0.0-0.7) 10^3/uL Baso # (Auto) 0.0 (0.0-0.1) 10^3/uL Absolute Nucleated RBC 0.00 x10^3/uL Nucleated RBC % 0.0 /100WBC Manual Slide Review Indicated WBC Morphology NORMAL APPEARANCE (NORMAL) Platelet Estimate DECREASED (<130,000) (NORMAL) Platelet Morphology NORMAL APPEARANCE (NORMAL) RBC Morph Micro Appear 1+ ANISOCYTOSIS (NORMAL) Sodium 140 (135-145) mmol/L Potassium 3.1 L (3.5-5.0) mmol/L Chloride 106 (101-111) mmol/L Carbon Dioxide 20 L (21-32) mmol/L Anion Gap 14.0 H (6-13) BUN 6 (6-20) mg/dL Creatinine 0.7 (0.4-1.0) mg/dL Estimated GFR (MDRD) 90 (>89) Glucose 119 H (70-100) mg/dL Calcium 9.2 (8.5-10.3) mg/dL Total Bilirubin 1.9 H (0.2-1.0) mg/dL AST 62 H (10-42) IU/L ALT 26 (10-60) IU/L Alkaline Phosphatase 49 (42-121) IU/L Total Protein 7.9 (6.7-8.2) g/dL Albumin 4.8 (3.2-5.5) g/dL Globulin 3.1 (2.1-4.2) g/dL Albumin/Globulin Ratio 1.5 (1.0-2.2) Lipase 136 H (22-51) U/L Urine Opiates Screen (NEGATIVE) Ur Oxycodone Screen (NEGATIVE) Urine Methadone Screen (NEGATIVE) Ur Propoxyphene Screen (NEGATIVE) Ur Barbiturates Screen (NEGATIVE) Ur Tricyclics Screen (NEGATIVE) Ur Phencyclidine Scrn (NEGATIVE) Ur Amphetamine Screen (NEGATIVE) U Methamphetamines Scrn (NEGATIVE) U Benzodiazepines Scrn (NEGATIVE) Urine Cocaine Screen (NEGATIVE) U Cannabinoids Screen (NEGATIVE) Ethyl Alcohol < 5.0 mg/dL 01/24/19 01/24/19 Range/Units 13:15 00:00 WBC (4.8-10.8) x10^3/uL RBC (4.20-5.40) 10^6/uL Hgb (12.0-16.0) g/dL Hct (37.0-47.0) % MCV (81.0-99.0) fL MCH (27.0-31.0) pg MCHC (32.0-36.0) g/dL RDW (12.0-15.0) % Plt Count (130-450) 10^3/uL MPV (7.9-10.8) fL Neut # (Auto) (1.5-6.6) 10^3/uL Lymph # (Auto) (1.5-3.5) 10^3/uL [place] # (Auto) (0.0-1.0) 10^3/uL Eos # (Auto) (0.0-0.7) 10^3/uL Baso # (Auto) (0.0-0.1) 10^3/uL Absolute Nucleated RBC x10^3/uL Nucleated RBC % /100WBC Manual Slide Review WBC Morphology (NORMAL) Platelet Estimate (NORMAL) Platelet Morphology (NORMAL) RBC Morph Micro Appear (NORMAL) Sodium (135-145) mmol/L Potassium (3.5-5.0) mmol/L Chloride (101-111) mmol/L Carbon Dioxide (21-32) mmol/L Anion Gap (6-13) BUN (6-20) mg/dL Creatinine (0.4-1.0) mg/dL Estimated GFR (MDRD) (>89) Glucose (70-100) mg/dL Calcium (8.5-10.3) mg/dL Total Bilirubin (0.2-1.0) mg/dL AST (10-42) IU/L ALT (10-60) IU/L Alkaline Phosphatase (42-121) IU/L Total Protein (6.7-8.2) g/dL Albumin (3.2-5.5) g/dL Globulin (2.1-4.2) g/dL Albumin/Globulin Ratio (1.0-2.2) Lipase (22-51) U/L Urine Opiates Screen POSITIVE H (NEGATIVE) Ur Oxycodone Screen NEGATIVE (NEGATIVE) Urine Methadone Screen NEGATIVE (NEGATIVE) Ur Propoxyphene Screen NEGATIVE (NEGATIVE) Ur Barbiturates Screen NEGATIVE (NEGATIVE) Ur Tricyclics Screen NEGATIVE (NEGATIVE) Ur Phencyclidine Scrn NEGATIVE (NEGATIVE) Ur Amphetamine Screen NEGATIVE (NEGATIVE) U Methamphetamines Scrn NEGATIVE (NEGATIVE) U Benzodiazepines Scrn NEGATIVE (NEGATIVE) Urine Cocaine Screen NEGATIVE (NEGATIVE) U Cannabinoids Screen NEGATIVE (NEGATIVE) Ethyl Alcohol < 5.0 mg/dL ABX Reporting Has patient been on IV antibiotics over the past 48 hours?: No Sepsis Event Note (H) - Evaluation Current Stage of Sepsis: Ruled out Assessment/Plan - Problem List (1) Abdominal pain Impression: 01/25 pt report her abdominal pain is better, pt did not ask dilaudid as far from [place]. her lipase is reduce to 130 from 300 continue clear diet now, will advance as pt tolerate, continue pain control continue IVF of NS lab monitor MRCP test result is pending now, will followup the test result planed for care lab test show elevated Lipase, CT of abdomen reveals Dilated main pancreatic duct but without indication for pancreatitis. plan: order MRCP to determine if pt need ERCP. if pt need ERCP, then pt will be transferred to high level care with GI specialty to have ERCP pain control NPO now IVF (2) intractable Nausea & vomiting Conclusion/Plan: 01/25 pt report she is better than yesterday. pt's HCG test is negative continue PRN anti-emesis continue clear diet now followup MRCP test unknown etiology, the differentia diagnosis included pancreatitis, main pa ncreatic duct block, virus esophegitis IVF of NS antiemeotics PRN bowel rest with NPO (3) Elevated bilirubin Conclusion/Plan: 01/25 pt report she improved, today bili is 1.9 from yesterday 2.8 us of abdominal reveal severe fatty liver but with normal limited gallbladder MRCP is pending now pt has 2.8 total bilirubin, and slight elevated AST. pt has hx of alcohol abuse although she denies now, and alcohol test is negative now order MRCP continue lab monitor (4) Elevated lipase Conclusion/Plan: 01/25 lipase is down to 130 from 300, pt report her abdominal pain is better continue IVF of NS clear diet now continue lab monitor check Lipase pt has elevated Lipase 301, and CT reveals dilated pancreatic duct order MRCP, followup bowel rest, NPO IVF of NS pain control (5) Thrombocytopenia Conclusion/Plan: 01/25 slight drip, likely from dilation of serum continue lab monitor pt had Plt 60 but she had normal WBC and HGB level, pt has hx of alcohol. pt denies any bleeding. hx of alcohol is likely the cause of her thrombocytopenia lab monitor, hold any blood thinner, closely any bleeding Qualifiers: Abdominal location: upper abdomen, unspecified Qualified Code(s): R10.10 - Upper abdominal pain, unspecified
[2019-01-25] MEDS: DOCUSATE SODIUM 250 MG CAPSULE PO SCH (16:10)
[2019-01-25] MEDS: SODIUM CHLORIDE FLUSH 0.9% 10 ML SYRINGE IVP PRN (16:11)
[2019-01-26] MEDS: SODIUM CHLORIDE FLUSH 0.9% 10 ML SYRINGE IVP SCH (00:41)
[2019-01-26] MEDS: SODIUM CHLORIDE 0.9% 1,000 ML IV SCH ×2 (02:14→12:31)
--- NOTE | 2019-01-26 05:32 | MRI Report ---
Reason: ABD PAIN Procedure Date: 01/25/2019 Accession Number: [id number] / [id number] Procedure: MRI - MRCP W/O CPT Code: FULL RESULT: EXAM: MR ABDOMEN WITHOUT CONTRAST (MR CHOLANGIOPANCREATOGRAPHY) EXAM DATE: 01/25/2019 12:19 PM. CLINICAL HISTORY: Nausea and vomiting. COMPARISON: ABDOMEN/PELVIS W/ 01/24/2019 2:30 PM. TECHNIQUE: Multiplanar breath-hold T1 and T2 sequences obtained through the abdomen on an MR scanner. Dedicated 2D and 3D MRCP sequences obtained through the biliary and pancreatic ducts. No intravenous contrast given. FINDINGS: Lung Bases: The lung bases are clear. Liver: The liver is large measuring 21.7 cm in length. There is diffuse fatty change of the liver parenchyma. In segment 2/4 A there is a lobulated hyperintense T2 focus measuring approximately 2.6 x 2.6 x 1.6 cm favoring a cyst or hemangioma (image 29/501). CBD: There is mild prominence of the extrahepatic bile ducts measuring up to 7 mm. There are no filling defects identified to suggest choledocholithiasis. No intrahepatic biliary dilatation is seen.. Gallbladder: The gallbladder appears slightly distended. Gallbladder demonstrates some minor inspissated material within. No gallstones or pericholecystic fluid is seen. Pancreas: The pancreas demonstrates focal intermediate signal change in the ampulla measuring 1.8 x 1.6 x 1.1 cm (image 13/401 and image 8/601). There is pancreatic ductal dilation seen upstream from the ampulla. The pancreatic duct measures 5 mm in diameter and tapers relatively smoothly upstream. The remainder portions of the pancreas are intact.. Spleen: The spleen appears normal. Kidneys and Adrenals: The kidneys appear normal with no mass or hydronephrosis. There are no cysts in the kidneys. The adrenals appear normal. Bowel: The visualized bowel loops are unremarkable. Retroperitoneum: The retroperitoneal structures appear normal with no mass or lymphadenopathy. IMPRESSION: 1. Mild extrahepatic biliary and pancreatic ductal dilation seen with common bile duct measuring up to 7 mm and pancreatic duct measuring up to 5 mm. No stones are identified, however, in the ampullary region there is focal signal change measuring 1.8 x 1.6 x 1.1 cm. Underlying small mass and/or ampullary stenosis is not excluded. Consider further evaluation with ERCP/EUS. 2. Mildly distended gallbladder and inspissated material within, nonspecific. No gallstones. 3. Lobulated 1.8 cm hyperintense nodule in the left hepatic lobe dome, probable cyst or hemangioma. 4. Fatty liver and mild hepatomegaly. RADIA
[2019-01-26 05:50] LABS: BASOPHILS % (AUTO) 1.1 %; EOSINOPHILS # (AUTO) 0.1 10^3/uL (0.0-0.7); EOSINOPHILS % (AUTO) 2.2 %; HGB - HEMOGLOBIN 10.1 g/dL (12.0-16.0); LYMPHOCYTES # (AUTO) 0.7 10^3/uL (1.5-3.5); MEAN CORPUSCULAR HEMOGLOBIN 37.8 pg (27.0-31.0); MEAN CORPUSCULAR HGB CONC 34.8 g/dL (32.0-36.0); MEAN CORPUSCULAR VOLUME 108.6 fL (81.0-99.0); MEAN PLATELET VOLUME 11.8 fL (7.9-10.8); MONOCYTES # (AUTO) 0.3 10^3/uL (0.0-1.0); MONOCYTES % (AUTO) 9.4 %; NEUTROPHILS # (AUTO) 1.6 10^3/uL (1.5-6.6); NEUTROPHILS % (AUTO) 59.2 %; PLT - PLATELET COUNT 55 10^3/uL (130-450); RED BLOOD COUNT 2.67 10^6/uL (4.20-5.40); RED CELL DISTRIBUTION WIDTH 15.5 % (12.0-15.0); WHITE BLOOD COUNT 2.7 x10^3/uL (4.8-10.8)
[2019-01-26 06:00] LABS: ALBUMIN 4.2 g/dL (3.2-5.5); ALBUMIN/GLOBULIN RATIO 1.7 (1.0-2.2); ALKALINE PHOSPHATASE 42 IU/L (42-121); ALT ALANINE AMINOTRANSFERASE 22 IU/L (10-60); AST ASPARTATE AMINOTRANSFERASE 56 IU/L (10-42); BUN - BLOOD UREA NITROGEN < 5 mg/dL (6-20); CALCIUM 8.8 mg/dL (8.5-10.3); CARBON DIOXIDE - CO2 28 mmol/L (21-32); CHLORIDE 105 mmol/L (101-111); CREATININE 0.5 mg/dL (0.4-1.0); GFR - MDRD 133 (>89); GLUCOSE 113 mg/dL (70-100); LIPASE 128 U/L (22-51); SODIUM 142 mmol/L (135-145); TOTAL PROTEIN 6.7 g/dL (6.7-8.2)
[2019-01-26 06:17] LABS: DIFFERENTIAL COMMENT MANUAL=AUTO DIFF; PLATELET ESTIMATE, MANUAL DECREASED (<130,000) (NORMAL); RBC MORPHOLOGY (MULTIPLE) NORMAL APPEARANCE (NORMAL)
[2019-01-26] MEDS: SODIUM CHLORIDE FLUSH 0.9% 10 ML SYRINGE IVP PRN (07:06)
[2019-01-26] MEDS: PANTOPRAZOLE 40 MG VIAL IVP SCH (07:06)
[2019-01-26] MEDS ORDERED: POTASSIUM CHLORIDE 20 MEQ TABLET PO ONE (07:39)
[2019-01-26] MEDS ORDERED: POTASSIUM CHLOR 10 MEQ/100 ML 10 MEQ/100 ML BAG IV ONE (07:40)
[2019-01-26] MEDS: POLYETHYLENE GLYCOL 3350 17 GM PACKET PO SCH (08:38)
[2019-01-26] MEDS ORDERED: CALCIUM CARBONATE CHEW 500 MG TABLET PO SCH (08:41)
[2019-01-26] MEDS: DOCUSATE SODIUM 250 MG CAPSULE PO SCH (08:42)
[2019-01-26 12:34] VITALS: BP 143/92
--- NOTE | 2019-01-26 13:26 | Discharge Plan ---
Discharge Plan Problem Reviewed?: Yes Disposition: Home, Self Care Condition: Stable Diet: Regular Activity Restrictions: Activity as Tolerated Shower Restrictions: No (fall precaution) Instruction Topics: Pancreatitis Health Concerns: small mass in ampullary region Plan of Treatment: You tolerate regular diet without nausea, vomiting or abdominal pain. advise you [facility]up [facility] for further evaluation with ERCP/EUS. Our social media content manager arranged appointment for in next week Tuesday. Care Goals: stabilization and improvement of your medical condition Assessment: MRCP reveals small mass at ampullary region Additional Instructions or Follow Up instructions: you may followup your PCP in one week, followup powertrain design engineer in two weeks. Should your symptoms return or worsen, you may present ER, or call 911 for help. No Smoking: If you smoke, Please STOP! Call for help. Follow-up with: Lester Stark DO [Primary Care Provider] -
--- NOTE | 2019-01-26 13:42 | DISCHARGE SUMMARY ---
Discharge Summary Admit Date: 01/24/19 Discharge Date: 01/26/19 Discharging Provider: Gianluca Blackman Primary Care Provider: Dr. Stark Condition at Discharge: Stable Discharge Disposition: 01 Home, Self Care Discharge Facility Name: home - DIAGNOSES Admission Diagnoses: (1) Abdominal pain (2) Nausea & vomiting (3) Elevated bilirubin (4) Elevated lipase (5) Thrombocytopenia Discharge Diagnoses with Status of Each Condition: (1) Abdominal pain resolved. pt tolerated regular diet (2) Nausea & vomiting resolved. pt has no more nausea or vomiting and tolerate the regular diet (3) Elevated bilirubin resolved. bilirutin is 1.0 now (4) Elevated lipase stable. pt's lipase is down to 128. pt denies abdominal pain and tolerate regul ar diet (5) Thrombocytopenia stable. advise pt continue quit alcohol (6) hx of alcohol abuse pt report she will continue quit her alcohol problem (7) small mass at ampullary region in Pt's MRCP indicates small mass at ampullary region. I called Dr. Bayron Dugan GI at [facility]. Dr. Dugan advised because pt's bili is normal, lipase is down to 128, and pt is asymptomatic and tolerate regular diet, and hemodynamic stable, pt is not required in-pt. He can do ERCP/EUS for pt in two weeks. But unfortunately pt's coordinated HO insurance, their administration called me they can not accept pt's insurance plan. They advise me referral to , they will take pt's insurance plan. I called but u livanunately they did not update to call me back until later afternoon. Our social service assistant contacted . [facility] . pt reported to me she was accepted by [facility], she had an appointment on next Tuesday. pt was provided all information she need for her appointment. I was personally confirm again for pt's appointment,she said she had, and she will followup the appointment. (8)pancytopenia pt has hx of pancytopenia. it is likely from pt's hx of alcoholic abuse. pt is advised to followup her PCP to continue monitor. pt was educated for prevention infection and monitor of bleeding (9)hypokalemia potassium was replaced. - HPI History of Present Illness: Ms. Ren is a 48-yrs-old female without significant medical hx who present ER complain of nausea, vomiting and abdominal pain. pt report she has been throwing up profusely for the last three days. she can't keep anything down not even water. she is still feeling" i'm dehydrated." she report she had diffused and whole abdominal pain. she denies diarrhea. she report she did not have bowel movement for four days "anyway, I did not eat much." She denies fever, chill, chest pain, shortness of breath. CT of abdomen reveals potential mild distal esophageal wall thickening, question esophagitis, Dilated main pancreatic duct, gallbladder is distended, no biliary ductal dilation, fatty liver. US of abdomen reveals the common duct is mildly dilated at 1 cm. Lab test reveals significant value of total bilirubin 2.8, Ast 81, Lipase 301, Plt 60. pt is admitted in observation unit for further management. - HOSPITAL COURSE Hospital Course: pt was admitted for persistent nausea and vomiting, and abdominal pain. pt was found to have elevated lipase. pt was treated with bowel rest, IVF of NS. after treatment, pt has no more nausea, vomiting, and abdominal pain. pt tolerate regular diet. the detail hospital course is as the below. 1) Abdominal pain resolved. pt tolerated regular diet (2) Nausea & vomiting resolved. pt has no more nausea or vomiting and tolerate the regular diet (3) Elevated bilirubin resolved. bilirutin is 1.0 now (4) Elevated lipase stable. pt's lipase is down to 128. pt denies abdominal pain and tolerate regular diet (5) Thrombocytopenia stable. advise pt continue quit alcohol (6) hx of alcohol abuse pt report she will continue quit her alcohol problem (7) small mass at ampullary region in Pt's MRCP indicates small mass at ampullary region. I called Dr. Bayron Dugan GI at [facility]. Dr. Dugan advised because pt's bili is normal, lipase is down to 128, and pt is asymptomatic and tolerate regular diet, and hemodynamic stable, pt is not required in-pt. He can do ERCP/EUS for pt in two weeks. But unfortunately pt's coordinated HO insurance, their administration called me they can not accept pt's insurance plan. They advise me referral to , they will take pt's insurance plan. I called but unfortunately they did not update to call me back until later afternoon. Our social service assistant contacted . [facility] . pt reported to me she was accepted by [facility], she had an appointment on next Tuesday. pt was provided all information she need for her appointment. I was personally confirm again for pt's appointment,she said she had, and she will followup the appointment. (8)pancytopenia pt has hx of pancytopenia. it is likely from pt's hx of alcoholic abuse. pt is advised to followup her PCP to continue monitor. pt was educated for prevention infection and monitor of bleeding (9)hypokalemia potassium was replaced. - ALLERGIES Allergies/Adverse Reactions: Allergies Allergy/AdvReac Type Severity Reaction Status Date / Time Penicillins Allergy Unknown Verified 01/24/19 11:16 Sulfa (Sulfonamide Allergy Rash Verified 01/24/19 11:16 Antibiotics) - MEDICATIONS Home Medications: Ambulatory Orders Medication Instructions Recorded Confirmed Acyclovir 400 mg PO DAILY 01/25/19 01/25/19 - PHYSICAL EXAM AT DISCHARGE General Appearance: positive: No acute distress, Alert. negative: Lethargic Eyes Bilateral: positive: Normal inspection, PERRL, No lid inflammation, Conjunctivae nml ENT: positive: ENT inspection nml, Pharynx nml, No signs of dehydration. negative: Purulent nasal drainage, Pharyngeal erythema, Oral lesions Neck: positive: Nml inspection, Thyroid nml, No JVD, Trachea midline. negative: Thyromegaly, Lymphadenopathy (R), Lymphadenopathy (L), Stiff neck, Swelling/bruising, Tracheal deviation Respiratory: positive: Chest non-tender, No respiratory distress, Breath sounds nml. negative: Wheezes, Rales, Rhonchi Cardiovascular: positive: Regular rate & rhythm, No murmur, No gallop. negative: Irregularly irregular, Extrasystoles, Tachycardia, Bradycardia, JVD present, Systolic murmur, Diastolic murmur Peripheral Pulses: positive: 2+ Abdomen: positive: Non-tender, No organomegaly, Nml bowel sounds, No distention. negative: Tenderness, Guarding, Rebound Back: positive: Nml inspection. negative: CVA tenderness (R), CVA tenderness (L) Skin: positive: Color nml, No rash, Warm, Dry. negative: Cyanosis, Diaphoresis, Pallor Extremities: positive: Non-tender, Full ROM, Nml appearance. negative: Calf tenderness, Joint swelling, Nellie's sign/cords Neurologic/Psychiatric: positive: Oriented x3, Motor nml, Sensation nml, Mood/affect nml. negative: Weakness, Sensory loss, Facial droop, Slurred/abnml speech, Depressed mood/affect - LABS Result Diagrams: 01/26/19 05:30 01/26/19 05:30 - SEPSIS Current Stage of Sepsis: Ruled out - FOLLOW UP Follow Up: You tolerate regular diet without nausea, vomiting or abdominal pain. advise you followup [facility] for further evaluation with ERCP/EUS. you may followup your PCP in one week, followup leg breaker in two weeks. Should your symptoms return or worsen, you may present ER, or call 911 for help. - TIME SPENT Time Spent in Discharge (Minutes): 60
== END 2019-01-26 14:06 | disposition home or self-care (01) ==
LOC: ED 11:13 → MS2 17:17
PROVIDERS: ADMIT Nurse Practitioner Gerontology; ATTEND Nurse Practitioner Gerontology
DX: K86.89 Other specified diseases of pancreas (principal); K83.8 Other specified diseases of biliary tract; E86.0 Dehydration; D61.818 Other pancytopenia; E87.6 Hypokalemia; K76.0 Fatty (change of) liver, not elsewhere classified; Z87.898 Personal history of other specified conditions
CPT/HCPCS: 36415; 74177; 74181; 76705; 80053; 80306; 80320; 81001; 81025; 83690; 83735; 85025; 96361; 96365; 96366; 96367; 96375; 96376; 99284; 99285; A9270; G0378; J1170; J7040; Q9967; 81003; 87086

== ENCOUNTER 2020-06-25 10:51 | Outpatient (CLI) | payer MEDICAID ==
--- NOTE | 2020-06-26 08:38 | Ultrasound Report ---
LIMITED ULTRASOUND OF LEFT BREAST: 06/25/2020 CLINICAL: Palpable left breast lump. Comparison is made to exams dated: 06/25/2020 mammogram, 06/10/2014 mammogram, 08/10/2012 mammogram, 07/24 ultrasound, and 06/09/2009 mammogram - [facility]. Color flow and real-time ultrasound of the left breast 10 o'clock region were performed. Cordero scale images of the real-time examination were reviewed. No significant abnormalities were seen sonographically in the left breast. Specifically, no finding to correspond to the patient's palpable abnormality. IMPRESSION: NEGATIVE There is no sonographic correlate to the patient's palpable abnormality and no evidence of malignancy . Return to annual mammogram screening schedule is recommended. Findings and recommendations were conveyed to the patient at time of exam. This exam was interpreted at Station ID: [id number]. Electronically Signed By: Zohreh matias/:06/25/2020 12:38:52 Ultrasound BI-RADS: 1 Negative BI-RADS CATEGORY: (1) - 1 RECOMMENDATION: (ANNUAL) - Recommend routine annual screening mammography. [id number] return to screening LATERALITY: (B)
--- NOTE | 2020-06-26 08:38 | Mammography Report ---
BILATERAL DIGITAL DIAGNOSTIC MAMMOGRAM 3D/2D: 06/25/2020 CLINICAL: Palpable left breast lump. Comparison is made to exams dated: 06/10/2014 mammogram, 08/10/2012 mammogram, and 06/09/2009 mammogram - [facility]. The tissue of both breasts is heterogeneously dense. This may lower the sensitivity of mammography. No significant masses, calcifications, or other findings are seen in either breast. Specifically, no finding to correspond to the patient's palpable abnormality. IMPRESSION: INCOMPLETE: NEEDS ADDITIONAL IMAGING EVALUATION There is no abnormality seen in the left breast to correspond with the palpable abnormality at 2 o'cl ock. Ultrasound is recommended for full evaluation of this area. This was performed immediately following this exam. This exam was interpreted at Station ID: [id number]. NOTE: For mammograms, a report in lay terms will be sent to the patient. Approximately 15% of breast malignancies will not be visualized mammographically. In the management of a palpable breast mass, a negative mammogram must not discourage biopsy of a clinically suspicious lesion. Electronically Signed By: Zohreh matias/:06/25/2020 12:03:26 ACR BI-RADS Category 0: Incomplete 3340F PARENCHYMAL PATTERN: (D) - The breast(s) demonstrate(s) heterogeneously dense fibroglandular tammie solomon. BI-RADS CATEGORY: (0) - 0 Ultrasound [id number] Immediate follow-up LATERALITY: (B)
== END 2020-06-25 10:52 | disposition home or self-care (01) ==
LOC: DI 10:51
PROVIDERS: ATTEND Obstetrics & Gynecology
DX: N63.21 Unspecified lump in the left breast, upper outer quadrant (principal); Z80.3 Family history of malignant neoplasm of breast

== ENCOUNTER 2020-11-13 22:55 | Emergency (ER) | payer OTHER, MEDICAID ==
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
[2020-11-14 01:48] VITALS: BP 154/94
== END 2020-11-14 01:30 | disposition home or self-care (01) ==
LOC: ED 22:55
DX: T76.21XA Adult sexual abuse, suspected, initial encounter (principal); S30.23XA Contusion of vagina and vulva, initial encounter; S30.814A Abrasion of vagina and vulva, initial encounter; Y93.89 Activity, other specified; Y92.29 Other specified public building as the place of occurrence of the external cause
CPT/HCPCS: 0133C

== ENCOUNTER 2021-01-28 08:00 | Outpatient (CLI) | payer OTHER, MEDICAID | END 2021-01-28 23:59 | disposition home or self-care (01) | LOC: LAB 08:00 | PROVIDERS: ATTEND Nurse Practitioner | DX: R30.0 Dysuria (principal) | CPT/HCPCS: 87086; 87181 ==

== ENCOUNTER 2021-05-10 03:35 | Outpatient (CLI) | payer MEDICAID | END 2021-05-10 03:36 | disposition left against medical advice (07) | LOC: EMS 03:35 | DX: M54.6 Pain in thoracic spine (principal); Y04.2XXA Assault by strike against or bumped into by another person, initial encounter; Y92.003 Bedroom of unspecified non-institutional (private) residence as the place of occurrence of the external cause ==

== ENCOUNTER 2021-11-24 09:58 | Emergency (ER) | payer MEDICAID ==
[2021-11-24 10:45] LABS: BASOPHILS # (AUTO) 0.1 10^3/uL (0.0-0.1); BASOPHILS % (AUTO) 0.9 %; EOSINOPHILS # (AUTO) 0.1 10^3/uL (0.0-0.7); EOSINOPHILS % (AUTO) 0.9 %; HCT - HEMATOCRIT 37.4 % (37.0-47.0); HGB - HEMOGLOBIN 13.9 g/dL (12.0-16.0); LYMPHOCYTES % (AUTO) 17.6 %; MEAN CORPUSCULAR HEMOGLOBIN 39.6 pg (27.0-31.0); MEAN CORPUSCULAR HGB CONC 37.2 g/dL (32.0-36.0); MEAN CORPUSCULAR VOLUME 106.6 fL (81.0-99.0); MEAN PLATELET VOLUME 10.6 fL (7.9-10.8); MONOCYTES # (AUTO) 1.2 10^3/uL (0.0-1.0); MONOCYTES % (AUTO) 20.6 %; NEUTROPHILS # (AUTO) 3.2 10^3/uL (1.5-6.6); NEUTROPHILS % (AUTO) 56.3 %; PLT - PLATELET COUNT 160 10^3/uL (130-450); RED BLOOD COUNT 3.51 10^6/uL (4.20-5.40); RED CELL DISTRIBUTION WIDTH 13.8 % (12.0-15.0); WHITE BLOOD COUNT 5.6 x10^3/uL (4.8-10.8)
--- NOTE | 2021-11-24 10:57 | XRAY Report ---
PROCEDURE: Chest 1 View X-Ray INDICATIONS: Chest pain TECHNIQUE: One view of the chest was acquired. COMPARISON: None FINDINGS: Surgical changes and devices: None. Lungs and pleura: No pleural effusions or pneumothorax. Lungs are clear. Mediastinum: Mediastinal contours appear normal. Heart size is normal. Bones and chest wall: No suspicious bony lesions. Overlying soft tissues appear unremarkable. IMPRESSION: No acute cardiopulmonary pathology. Reviewed by: Federico Cintron MD on 11/24/2021 9:56 AM AVELINO Approved by: Federico Cintron MD on 11/24/2021 9:56 AM AVELINO Station ID: [id number]
[2021-11-24 11:00] LABS: ALBUMIN/GLOBULIN RATIO 1.5 (1.0-2.2)
[2021-11-24 11:01] LABS: ALBUMIN 5.2 g/dL (3.2-5.5); BILIRUBIN,TOTAL 1.1 mg/dL (0.2-1.0); CALCIUM 10.4 mg/dL (8.5-10.3); CREATININE 0.9 mg/dL (0.4-1.0); TOTAL PROTEIN 8.7 g/dL (6.7-8.2)
[2021-11-24 11:02] LABS: POTASSIUM 2.5 mmol/L (3.5-5.0)
--- NOTE | 2021-11-24 11:21 | ED Physician Documentation ---
History of Present Illness - Stated complaint Stated Complaint: VOMITING - Chief complaint Chief Complaint: Cardiac - History obtained from History obtained from: Patient - History of Present Illness Timing: How many days ago (5) - Additonal information Additional information: "51-year-old female with history of "pancreatic stent placement" (many years ago in [place], uncertain reason) presents for 4 days of constant nausea and vomiting. Patient states that even the act of brushing her teeth causes her to be nauseous and vomit. This is never happened before. Patient states that she used to drink 2 to 3 glasses of wine 3-4 times a week, however states that she has not had any alcohol in the last 2 weeks. Patient also states that in the last month she has had unintentional 20 pound weight loss. Review of Systems Ten Systems: 10 systems reviewed and negative Constitutional: denies: Fever, Chills, Myalgias, Fatigue Eyes: denies: Loss of vision, Decreased vision, Photophobia Ears: denies: Loss of hearing, Ear pain, Drainage/discharge Nose: denies: Rhinorrhea / runny nose, Congestion, Foreign Body Throat: denies: Dental pain / toothache, Oral lesions / sores, Sore throat Cardiac: denies: Chest pain / pressure, Palpitations, Pedal edema Respiratory: denies: Dyspnea, Cough, Wheezing GI: reports: Nausea, Vomiting. denies: Abdominal Pain, Abdominal Swelling, Constipation, Diarrhea : denies: Dysuria, Frequency, Hesitancy Skin: denies: Rash, Lesions, Abrasion (s), Laceration (s) Musculoskeletal: denies: Neck pain, Back pain, Extremity pain, Joint pain PD PAST MEDICAL HISTORY - Past Medical History Past Medical History: Yes Cardiovascular: None Respiratory: None Endocrine/Autoimmune: None GI: None, Hepatitis : None Psych: None Derm: Herpes zoster - Past Surgical History Past Surgical History: Yes Ortho: Arthroscopic surgery, Other - Present Medications Home Medications: Ambulatory Orders Medication Instructions Recorded Confirmed Acyclovir 400 mg PO DAILY 01/25/19 11/17/21 Ondansetron Odt [Zofran] 4 mg TL Q6H PRN #10 tablet 11/24/21 Promethazine Sup [Phenergan Supp] 12.5 mg RC TID PRN #15 supp.rect 11/24/21 - Allergies Allergies/Adverse Reactions: Allergies Allergy/AdvReac Type Severity Reaction Status Date / Time Penicillins Allergy Unknown Verified 11/24/21 10:07 Sulfa (Sulfonamide Allergy Rash Verified 11/24/21 10:07 Antibiotics) - Social History Does the pt smoke?: No Smoking Status: Never smoker Does the pt drink ETOH?: Yes Does the pt have substance abuse?: No - Immunizations Immunizations are current?: Yes - POLST POLST Status: Full Code PD ED PE NORMAL - Vitals Vital signs reviewed: Yes - General General: Alert and oriented X 3, No acute distress, Well developed/nourished - HEENT HEENT: Atraumatic, PERRL, EOMI, Ears normal, Moist mucous membranes, Pharynx benign, Dentition benign - Neck Neck: Supple, no meningeal sign, No bony TTP, No adenopathy - Cardiac Cardiac: RRR, No murmur, Strong equal pulses - Respiratory Respiratory: No respiratory distress, Clear bilaterally - Abdomen Abdomen: Soft, Non tender, Non distended, No organomegaly - Female Female : Deferred - Rectal Rectal: Deferred - Back Back: No CVA TTP, No spinal TTP - Derm Derm: Normal color, Warm and dry, No rash - Extremities Extremities: No deformity, No tenderness to palpate, Normal ROM s pain, No edema - Neuro Neuro: Alert and oriented X 3, 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, No motor deficit, No sensory deficit, Normal speech - Psych Psych: Normal mood, Normal affect Results - Vitals Vitals: Vital Signs - 24 hr 11/24/21 11/24/21 11/24/21 10:01 12:07 14:00 Temperature 36.4 C L 36.5 C Heart Rate 108 H 88 99 Respiratory 16 13 14 Rate Blood Pressure 148/99 H 138/91 H 119/86 H O2 Saturation 100 100 97 Oxygen O2 Source Room air - EKG (time done) 1011 Rate: Rate (enter#) (114) Rhythm: Sinus tachycardia [place]: Normal Intervals: Normal [place], Prolonged QT Ischemia: Normal ST segments - Labs Labs: Laboratory Tests 11/24/21 11/24/21 11/24/21 10:30 10:30 10:30 WBC 5.6 RBC 3.51 L Hgb 13.9 Hct 37.4 MCV 106.6 H MCH 39.6 H MCHC 37.2 H RDW 13.8 Plt Count 160 MPV 10.6 Neut # (Auto) 3.2 Lymph # (Auto) 1.0 L [place] # (Auto) 1.2 H Eos # (Auto) 0.1 Baso # (Auto) 0.1 Absolute Nucleated RBC 0.00 Nucleated RBC % 0.0 Sodium 133 L Potassium 2.5 L* Chloride 93 L Carbon Dioxide 25 Anion Gap 15.0 H BUN 17 Creatinine 0.9 Estimated GFR (MDRD) 67 L Glucose 127 H Calcium 10.4 H Total Bilirubin 1.1 H AST 62 H ALT 31 Alkaline Phosphatase 64 Troponin I High Sens 24.0 H* Total Protein 8.7 H Albumin 5.2 Globulin 3.5 Albumin/Globulin Ratio 1.5 Lipase 162 H PD MEDICAL DECISION MAKING - ED course Complexity details: reviewed old records, reviewed results, re-evaluated patient, considered differential, d/w patient ED course: Patient presenting for several days of nausea and vomiting, abdomen is soft, absolutely no reproducible tenderness palpation. Labs are significant for elevated lipase, given patient's history of pancreatic stent will obtain imaging. Labs significant for hypokalemia, likely secondary to patient's nausea and vomiting. Patient's QT is prolonged, also likely secondary to hypokalemia. Since she has a history of vomiting we will replete via IV. CT pending. CT is negative for acute findings, patient's pancreatic duct is dilated, however it is improved compared to previous imaging in 2019. Patient reassessed, she is resting comfortably in the ED bed, she has received fluids and potassium IV is running. Patient was informed of her lab and imaging results by myself at bedside, she was able to tolerate p.o. without any further episodes of emesis. Patient was counseled to follow-up with either the surgeon or GI doctor who placed her pancreatic stent, she was counseled to follow a higher potassium diet for the next 2 to 3 days in order to replete her potassium. Prescription for Zofran sent to pharmacy. Patient expressed understanding of plan and is in agreement at this time. All questions answered at the time of discharge. Departure - Departure Disposition: 01 Home, Self Care Clinical Impression: Vomiting, Hypokalemia, Elevated lipase Condition: Stable Instructions: ED Diet High Potassium, ED Nausea Vomiting Prescriptions: Promethazine Sup [Phenergan Supp] 12.5 mg RC TID PRN #15 supp.rect PRN Reason: Nausea / Vomiting Ondansetron Odt [Zofran] 4 mg TL Q6H PRN #10 tablet PRN Reason: Nausea / Vomiting Comments: You have been seen today for nausea and vomiting. At this time there is no reason to keep you in the hospital. You had low potassium, we gave you IV replacement. In addition you should follow a high potassium diet for the next several days. You will be discharged on a medication for nausea and vomiting to take at home. Your lipase today was elevated, however your CT scan showed improvement from 2019. I would follow-up with the doctor who placed your pancreatic stent. Continue to not drink alcohol. Discharge Date/Time: 11/24/21 14:31
[2021-11-24] MEDS ORDERED: SODIUM CHLORIDE 0.9% 1,000 ML IV STA (11:28)
[2021-11-24] MEDS ORDERED: ONDANSETRON 4 MG/2 ML VIAL IVP STA (11:28)
[2021-11-24] MEDS ORDERED: POTASSIUM CHLOR 10 MEQ/100 ML 10 MEQ/100 ML BAG IV ONE ×2 (11:34→11:35)
--- NOTE | 2021-11-24 12:32 | CT Report ---
PROCEDURE: Abdomen/Pelvis W INDICATIONS: N/V/ELEVATED LIPASE, 20LB WEIGHT LOSS CONTRAST: IV CONTRAST: Optiray 320 ml: 100 PO CONTRAST: *NO PO CONTRAST TECHNIQUE: After the administration of contrast, 5 mm thick sections acquired from the diaphragms to the symphy sis. 5 mm thick coronal and sagittal reformats were acquired. For radiation dose reduction, the fol lowing was used: automated exposure control, adjustment of mA and/or kV according to patient size. COMPARISON: January 24, 2019 FINDINGS: Image quality: Excellent. ABDOMEN: Lung bases: Lung bases are clear. Heart size is normal. Solid organs: Hepatic steatosis. Liver dome left lobe lobulated hypoattenuating lesion was noted on M RI from 01/25/2019. Cholelithiasis. Biliary tree is nondilated. The pancreatic duct is prominent as before, with some gas at the periampullary aspect. Diameter seems decreased however compared to February 11, 2019. Spleen, adrenals are unremarkable. Kidneys are unremarkable. Peritoneum and bowel: Small hiatal hernia. Nonobstructive bowel. No ascites. Nodes and vessels: No retroperitoneal or mesenteric adenopathy by size criteria. Aorta and inferior vena cava are normal in size. Miscellaneous: Small fat-containing ventral hernia. PELVIS: Genitourinary: Bladder wall thickness is normal. IUD in place. Miscellaneous: No inguinal hernias or adenopathy. Bones: No suspicious bony lesions. No vertebral body compression fractures. IMPRESSION: No bowel obstruction. There is a small hiatal hernia and distal esophageal wall thickeni ng that may be from esophagitis. No overt imaging signs of pancreatitis. The pancreatic duct is prominent in diameter, but decreased compared to CT obtained January 24, 2019. A small amount of gas is seen in the periampullary pancreatic duct which may indicate sphincter insuf ficiency or recent instrumentation. Cholelithiasis. Suspected hepatic steatosis. Reviewed by: Juvencio Marx MD on 11/24/2021 12:31 PM PDT Approved by: Juvencio aMrx MD on 11/24/2021 12:31 PM PDT Station ID: [id number]
[2021-11-24 14:07] VITALS: BP 119/86
== END 2021-11-24 14:31 | disposition home or self-care (01) ==
LOC: ED 09:58
DX: E87.6 Hypokalemia (principal); R74.8 Abnormal levels of other serum enzymes
CPT/HCPCS: 36415; 71045; 74177; 80053; 83690; 84484; 85025; 93005; 96365; 96366; 96375; 99284; Q9967

== ENCOUNTER 2021-12-22 06:28 | Day surgery (SDC) | payer MEDICAID ==
[2021-12-22] MEDS ORDERED: LACTATED RINGERS 1,000 ML IV ONE (07:04)
[2021-12-22] MEDS ORDERED: LIDOCAINE MPF 2%-EPI 1:200000 20 ML VIAL ONE (07:20)
[2021-12-22] MEDS ORDERED: BUPIVACAINE 0.25% PF 10 ML VIAL ONE (07:20)
--- NOTE | 2021-12-22 07:22 | ANESTHESIA ---
Pre-Anesthesia VS, & Labs - Diagnosis RETAINED IUD; CERVICAL LESION - Procedure HYSTEROSCOPY; IUD REMOVAL Vital Signs: Temp Pulse Resp BP Pulse Ox 37.2 C 93 16 161/92 H 97 12/22/21 06:48 12/22/21 06:48 12/22/21 06:48 12/22/21 06:48 12/22/21 06:48 Height: 5 ft Weight (kg): 62.7 kg Body Mass Index: 26.9 BMI Classification: Overweight - NPO >8 hours - Is Patient ?: No Home Medications and Allergies Home Medications: Ambulatory Orders Loratadine [Allergy Relief] 10 mg PO DAILY 12/09/21 Acyclovir 400 mg PO DAILY 01/25/19 Loratadine [Allergy Relief] 10 mg PO DAILY 12/09/21 Allergies/Adverse Reactions: Allergies Allergy/AdvReac Type Severity Reaction Status Date / Time Penicillins Allergy Unknown Verified 11/24/21 10:07 Sulfa (Sulfonamide Allergy Rash Verified 11/24/21 10:07 Antibiotics) Anes History & Medical History - Anesthetic History Anesthesia Complications: reports: No previous complications Family history of Anesthesia Complications: Denies Family history of Malignant Hyperthermia: Denies - Medical History Cardiovascular: reports: None Pulmonary: reports: None Gastrointestinal: reports: None, Hepatitis Urinary: reports: None Neuro: reports: None Musculoskeletal: reports: None Endocrine/Autoimmune: reports: None Blood Disorders: reports: None Skin: reports: Herpes zoster Smoking Status: Never smoker History of Cancer?: No - Surgical History Orthopedic: reports: Arthroscopic surgery, Other Exam General: Alert, Oriented x3, Cooperative Dental: WNL, Other (SCREWS ON BOTH SIDES OF JAW/MAXILLARY- FROM PREVIOUS CROSS BITE CORRECTION-16 Y/O) Mouth Openin Fingerbreadth Neck Mobility: Normal Mallampati classification: II Respiratory: Lungs clear Cardiovascular: Regular rate Mental/Cognitive Status: Alert/Oriented X3 Cognitive Status: Within normal limits Plan Anesthesia Type: General, Total IV Consent for Procedure(s) Verified and Reviewed: Yes Code Status: Attempt Resuscitation ASA classification: 2-Mild systemic disease Is this case an emergency?: No
[2021-12-22] MEDS ORDERED: LIDOCAINE-MPF 2% 5 ML VIAL ONE (07:26)
[2021-12-22] MEDS ORDERED: DEXAMETHASONE 4 MG/ML VIAL ONE (07:26)
[2021-12-22] MEDS ORDERED: ONDANSETRON 4 MG/2 ML VIAL ONE ×2 (07:26→09:02)
[2021-12-22] MEDS ORDERED: PROPOFOL 200 MG/20 ML VIAL IVP ONE ×2 (07:26→08:18)
[2021-12-22] MEDS ORDERED: fentaNYL 100 MCG/2 ML VIAL ONE ×2 (07:27→09:02)
[2021-12-22] MEDS ORDERED: MIDAZOLAM 2 MG/2 ML VIAL ONE (07:27)
[2021-12-22 07:41] LABS: HCG UR QUAL NEGATIVE
[2021-12-22] MEDS ORDERED: LEVONORGESTREL 20 MCG/24H IUD IY ONE ×2 (08:00→09:26)
[2021-12-22] MEDS ORDERED: FERRIC SUBSULFATE 8 ML SOLUTION (FOR OR) TOP ONE (08:20)
[2021-12-22] MEDS ORDERED: NALOXONE 0.4 MG/ML VIAL IVP PRN (08:29)
[2021-12-22] MEDS ORDERED: ATROPINE ABBOJECT 1 MG/10 ML SYRINGE IVP PRN (08:29)
[2021-12-22] MEDS ORDERED: HYDROmorphone 0.5 MG/0.5 ML SYRINGE IVP PRN (08:29)
[2021-12-22] MEDS ORDERED: MORPHINE 2 MG/ML CARPUJECT IVP PRN (08:29)
[2021-12-22] MEDS ORDERED: ONDANSETRON 4 MG/2 ML VIAL IVP PRN (08:29)
[2021-12-22] MEDS ORDERED: KETOROLAC 30 MG/ML VIAL ONE (08:39)
[2021-12-22] MEDS: fentaNYL 100 MCG/2 ML VIAL IVP PRN ×2 (08:50→09:29)
[2021-12-22] MEDS ORDERED: LACTATED RINGERS 650 ML IV ONE (08:53)
[2021-12-22] MEDS ORDERED: LACTATED RINGERS 1,000 ML IV SCH (09:00)
--- NOTE | 2021-12-22 09:11 | OPERATIVE REPORT ---
Operative Report - General Planned Procedure: Hysteroscopy IUD removal and replacement Cervical Biopsy Pre-Op Diagnosis: Presence of IUD, cervical lesion Procedure Performed: IUD removal and replacement Cervical Biopsy Post Op Diagnosis: S/p removal and replacement of IUD and cervical biopsy - Procedure Note Primary Surgeon: Bayron Angel MD Secondary Surgeon: AIME Mario Anesthesia Provider: Renuka Membreno CRNA Anesthesia Technique: General ET tube Pathology: Cervical biopsy, 8 o'clock Estimated Blood Loss (mL): 5 Complications: None - Other Other Information/Narrative: Patient was taken to the operating room where adequate anesthesia was obtained. She was placed in dorsal lithotomy position and the perineum was cleansed with Hibiclens. After timeout, a bivalve speculum was used to visualize the cervix her IUD strings were easily seen. T she he cervical lesion was noted between 6:00 and 8:00, likely a nabothian cyst, but patient was extremely worried this was cancer so biopsy was taken. The strings were grasped with a ringed forcep and removed with gentle traction. We discussed possible hysteroscopy if the IUD was embedded, but since the removal with easy, this procedure is not performed. A single-tooth tenaculum was used to grab the anterior lip of the cervix. At that point the IUD was placed after uterus was sounded to 6 cm. Device was inserted slightly before the fundus, deployed and allowed to expand, the device was then inserted to the fundus and the remainder of the appointment was completed. The strings were trimmed to the level of the hymen. At that point a Tischler biopsy forcep was used to take a biopsy at approximately 8:00 on the cervix. Monsel's solution was used to achieve hemostasis. Upon reexamination, hemostasis was noted and all instruments were removed from the vagina. Patient was taken to the PACU in stable condition.
[2021-12-22] MEDS ORDERED: METOCLOPRAMIDE 10 MG/2 ML VIAL IVP PRN (09:17)
[2021-12-22] MEDS ORDERED: PROMETHAZINE INJ 6.25 MG in SODIUM CHLORIDE 0.9% 50 ML IV PRN (09:17)
--- NOTE | 2021-12-22 09:50 | ANESTHESIA POST OP EVALUATION ---
Anesthesia Post Eval - Post Anesthesia Eval Vitals: Last Vital Signs Temp 36.4 C L 12/22/21 09:35 Pulse 86 12/22/21 09:35 Resp 12 12/22/21 09:35 BP 144/84 H 12/22/21 09:35 Pulse Ox 98 12/22/21 09:35 CV Function Including HR & BP: Stable Pain Control: Satisfactory Nausea & Vomiting: Negative Mental Status: Baseline Respiratory Status: Airway Patent (O2 via NC to keep sat >90%) Hydration Status: Satisfactory Anesthesia Complications: None
[2021-12-22 10:41] VITALS: BP 126/83
== END 2021-12-22 06:29 | disposition home or self-care (01) ==
LOC: SDS 06:28
PROVIDERS: ATTEND Obstetrics & Gynecology
PROC: 0UH97HZ Insertion of Contraceptive Device into Uterus, Via Natural or Artificial Opening (ICD-10-PCS; 2021-12-22)
PROC: 0UBC7ZX Excision of Cervix, Via Natural or Artificial Opening, Diagnostic (ICD-10-PCS; principal; 2021-12-22 07:30)
PROC: 0UPD7HZ Removal of Contraceptive Device from Uterus and Cervix, Via Natural or Artificial Opening (ICD-10-PCS; 2021-12-22 07:30)
DX: T83.89XA Other specified complication of genitourinary prosthetic devices, implants and grafts, initial encounter (principal); N88.8 Other specified noninflammatory disorders of cervix uteri; B02.9 Zoster without complications
CPT/HCPCS: 57500; 58300; 58301; 81025; J2765; J7120; J7298

== ENCOUNTER 2022-08-24 09:14 | Outpatient (CLI) | payer MEDICAID ==
--- NOTE | 2022-08-25 12:13 | Mammography Report ---
BILATERAL DIGITAL SCREENING MAMMOGRAM 3D/2D: 08/24/2022 CLINICAL: High risk screening. Family history of breast cancer. Routine screening. Comparison is made to exams dated: 06/25/2020 ultrasound, 06/25/2020 mammogram, 06/10/2014 mammogram, 07/24 mammogram, 08/10/2012 ultrasound, and 06/09/2009 mammogram - [facility]. There are scattered areas of fibroglandular density in both breasts (category b / 25%-50% glandular t issue). No significant masses, calcifications, or other findings are seen in either breast. There has been no significant interval change. IMPRESSION: NEGATIVE There is no mammographic evidence of malignancy. A 1 year screening mammogram is recommended. Based on Tyrer-Cuzick model (a risk assessment model), the patient's lifetime risk is 22.8% and her 1 0 year risk is 5.6%. If a patient has an elevated risk, a more comprehensive evaluation should be con sidered and/or a referral to a genetic counselor. The [employer], [employer], and NCCN Guidelines advise the consideration of Breast MRI as an adjunct to screening mammog juan in patients whose "Lifetime risk to develop breast cancer" is 20% or higher. This exam was interpreted at Station ID: [id number]. NOTE: For mammograms, a report in lay terms will be sent to the patient. Approximately 15% of breast malignancies will not be visualized mammographically. In the management of a palpable breast mass, a negative mammogram must not discourage biopsy of a clinically suspicious lesion. Electronically Signed By: Zohreh matias/raya:08/24/2022 14:02:52 letter sent: No_Letter ACR BI-RADS Category 1: Negative 3341F PARENCHYMAL PATTERN: (A) - The breast(s) demonstrate(s) scattered fibroglandular densities. BI-RADS CATEGORY: (1) - 1 Mammogram [id number] 1 year screening LATERALITY: (B)
== END 2022-08-24 09:15 | disposition home or self-care (01) ==
LOC: DI.N 09:14
DX: Z12.31 Encounter for screening mammogram for malignant neoplasm of breast (principal); Z80.3 Family history of malignant neoplasm of breast